=== PATIENT | male | born 1985 | race Caucasian/White ===

== ENCOUNTER 2017-05-22 08:31 | Observation (INO) | payer BC, SELFPAY ==
[2017-05-22] VITALS (12 sets, daily range): BP systolic 111–148; BP diastolic 66–94; PULSE 56–111; RESP 15–19; TEMP 36.8–37.1; O2SAT 96–100; BMI 27.8; BMI 27.2
--- NOTE | 2017-05-22 08:37 | NURSING ---
NO OLD EKGS
--- NOTE | 2017-05-22 08:46 | EKG12_ITS ---
Test Reason : CP Blood Pressure : / mmHG Vent. Rate : 092 BPM Atrial Rate : 092 BPM P-R Int : 146 ms QRS Dur : 086 ms QT Int : 354 ms P-R-T Axes : 064 059 044 degrees QTc Int : 437 ms Normal sinus rhythm Normal ECG Confirmed by CHEYENNE RODRIGUEZ, ASHWIN ([id number]), newspaper copy editor JIM FAJARDO ([id number]) on 05/24/2017 3:12:12 PM Referred By: JOSETTE Confirmed By:ASHWIN QUINN MD
--- NOTE | 2017-05-22 08:48 | ED.VISSUMM ---
- ER Visit Summary Date of Service: 05/22/17 Chief Complaint: Chest pain History of Present Illness: The patient is a 32 M with a 3 day history of intermittent chest pain. He describes a sharp pinching sensation under the left lower ribs that travels up toward his left collarbone. Pain is worse with deep breath or with twisting or turning onto his side while lying down. Patient does feel somewhat short of breath. He has had mild cough in the morning only. No fever or runny nose. Patient does report recent travel with a 10 hour car ride to [place] 10 days ago. He has no other risk factors for DVT and no family history. Physical Examination: Initial vital signs are significant for tachycardia with a heart rate of 111, improved into the normal range at the time of my exam. Head neck examination is unremarkable. Heart is regular rate and rhythm. Lung sounds are clear with good air movement. Abdomen is soft nontender. Lower external examination reveals no calf tenderness or edema. He has strong distal pulses throughout that are equal. Test Results: EKG is sinus at 92 bpm with no sign of acute ischemia or strain. CBC and chemistry studies are normal. Troponin is less than 0.02. D-dimer is less than 0.27. Portable chest x-ray per my read is unremarkable with normal cardiac silhouette. Emergency Department Course and Treatment: Patient was observed in the emergency room. I went back to review his test results with him. He states that approximately 10 minutes before I came into the room he had a fluttering sensation in his chest and the monitor looked abnormal. Those symptoms are completely resolved. I went back to the monitor system and reviewed alarms. Patient had a 6 beat run of V. tach. This was sent to and discussed with Dr. Busby. He asked that we check a magnesium level and give the patient aspirin. 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 Patient is to be admitted for cardiac monitoring, cycling of cardiac enzymes, echocardiogram, and stress test. Hospitalist is on page. Treatment Plan: [] Disposition: Admit Impression: 1. Chest pain 2. 6 beat run of V. tach This note was generated with [employer] dictation software. It may contain incorrect words, spelling, and punctuation that were not noted in review of the chart prior to signing ED Disposition - Plan for ED Patient: Chief Complaint: Chest Other Referrals: Todd Guzman MD [Primary Care Provider] -
--- NOTE | 2017-05-22 09:10 | RAD_ITS ---
STUDY: X-RAY CHEST REASON FOR EXAM: Male, 32 years old. Chest pain and shortness of breath. TECHNIQUE: Two AP portable views of the chest. COMPARISON: May 25, 2016. FINDINGS: Cardiac monitoring leads are present. The lungs are clear and hyperexpanded. There is no demonstrated pleural abnormality. Normal size heart. Normal mediastinum and bethanie. Normal visualized pulmonary arteries. Normal visualized aortic arch and descending thoracic aorta. Normal visualized thoracic spine. Normal visualized ribs, clavicles, and shoulders. There is no demonstrated abnormality of the visualized soft tissue structures of the upper abdomen. RAD/Chest 1 View (Portable) IMPRESSION: No radiographic evidence of acute cardiopulmonary disease. Electronically Signed: Krupa Michael MD at 9:52 EDT , Service support ,
[2017-05-22 09:16] LABS: D-Dimer Quantitative (DVT/PE) < 0.27 FEU/ug/m (0.27-0.49)
[2017-05-22 09:19] LABS: Absolute Lymphocyte Count 2.83 X10^3/ul (0.83-4.51); Absolute Neutrophil Count 5.9 X10^3/uL (2.0-7.7); Eosinophil# 0.02 X10^3/uL; Eosinophils% 0.2 % (0-5); Hematocrit 46.1 % (40-54); Hemoglobin 16.4 g/dl (13.0-16.5); Lymphocyte # 2.83 X10^3/ul (4.0); Lymphocyte % 29.3 % (19-41); Mean Corp Hgb Conc 35.6 g/gl (32-36); Mean Corpuscular Hgb 31.2 pg (27.0-32.0); Mean Corpuscular Volume 87.6 fL (80-94); Mean Platelet Vol. 9.1 fl (6.2-12.0); Monocyte# 0.89 X10^3/uL; Monocyte% 9.2 % (0-10); POSITIVE COUNT NO; POSITIVE DIFFERENTIAL NO; POSITIVE MORPHOLOGY NO; Platelet Count 212 K/mm3 (150-450); RBC Distribution Width CV 12.4 % (11.6-14.6); RBC Distribution Width SD 39.6 fl (35.1-43.9); Red Blood Count 5.26 M/mm3 (4.6-6.2); White Blood Count 9.7 K/mm3 (4.4-11.0)
[2017-05-22 09:23] LABS: Anion Gap 10 (5-15); BUN 18 mg/dL (7-18); BUN/Creat Ratio 17.1 RATIO (10-20); Calcium,Total 9.1 mg/dL (8.5-10.1); Chloride 102 mmol/L (98-107); Creatinine, Serum 1.05 mg/dL (0.70-1.30); EST Glomerular Filtration Rate 88 mL/min (>60); Est Glom Filt Rate - Afr Amer 106 mL/min (>60); Estimated Creatinine Clearance 105.25 ml/min; Glucose 90 mg/dL (74-106); Potassium 3.7 mmol/L (3.5-5.1); Sodium Level 140 mmol/L (136-145)
--- NOTE | 2017-05-22 09:50 | NURSING ---
DR MAYORGA FOR DR FINCH
--- NOTE | 2017-05-22 09:54 | NURSING ---
PCU OBS V TAC WITH CP TIERRA
[2017-05-22 09:57] LABS: Magnesium 2.1 mg/dL (1.6-2.6)
--- NOTE | 2017-05-22 09:58 | HP.PCM_ITS ---
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 Patient denies shortness of breath, dizziness, sweating or syncope. In the ER his blood pressure was slightly elevated, 148/88 but now it is normal. He had 6 beats of NSVT in the ER. 2 EKGs done showed normal sinus rhythm with no significant ST-T changes suggestive of ischemia. [] Past Medical History Allergies dexamethasone [From TobraDex] Allergy (Verified 05/22/17 08:34) LOVE HOLM tobramycin Allergy (Verified 05/22/17 08:34) LOVE HOLM Home Medications: Ambulatory Orders Medication Instructions Recorded Escitalopram Oxalate [Lexapro] 10 mg PO DAILY 05/22/17 Smoking Status: Former smoker Review of Systems Constitutional: Denies: Chills, Fever, Weight Change HEENT: Denies: Head Aches, Sinus Congestion, Sinus Drainage Cardiovascular: Reports: Chest Pain. Denies: Palpitations Respiratory: Denies: Cough, Shortness of breath at rest, Sputum production Gastrointestinal: Denies: Abdominal Pain, Nausea, Vomiting Genitourinary: Denies: Dysuria Musculoskeletal: Denies: Joint Pain, Joint Tenderness Skin: Denies: Rash, Wounds Neurological: Denies: Numbness, Tingling, Focal weakness Psychiatric: Denies: Anxiety, Depression, Homicidal Ideations, Suicidal Ideations Hematologic/ Lymphatic: Denies: Easy Bruising, Easy Bleeding VTE Information - Inpt Only VTE Present on Admission: No VTE Mechan Device Prophylaxis: None VTE Pharm Prophylaxis ordered?: No Reason prophylaxis not ordered:: Procedure Not Indicated Patient Problems: Active and Suspected Problems Atypical chest pain (Acute) NSVT (nonsustained ventricular tachycardia) (Acute) - Physical Exam General: Alert, Oriented x3, Cooperative HEENT: Atraumatic, PERRLA, EOMI, Normocephalic Neck: Supple, No JVD, Negative Carotid Bruits Lungs: Clear to auscultation, Normal air movement, No rhonchi, No wheeze, No rales, - - Mild tenderness over left costal margin and rib cage anteriorly Cardiovascular: Regular rate, Regular Rhythm, Normal S1, Normal S2, No murmurs Abdomen: Bowel Sounds Present, Soft, Non Tender, Non-Distended Extremities: No edema, Capillary Refill Less than 3 Seconds Skin: No rashes, No breakdown Musculoskeletal: No Tenderness to Palpation of Joints or Extremities Neurological: Cranial nerves II-XII grossly intact Psych/Mental Status: Normal Affect, Appropriate Vital Signs Temp Pulse Resp BP Pulse Ox 98.5 F 89 15 148/88 H 100 05/22/17 08:31 05/22/17 08:40 05/22/17 08:40 05/22/17 08:40 05/22/17 08:58 Oxygen Delivery Method Room Air Weight: 194 lb 0.108 oz Body Mass Index (BMI) 27.8 Laboratory Tests Past 24 Hrs 05/22/17 05/22/17 05/22/17 08:50 08:50 08:50 WBC 9.7 RBC 5.26 Hgb 16.4 Hct 46.1 MCV 87.6 MCH 31.2 MCHC 35.6 RDW 12.4 RDW Differential 39.6 Plt Count 212 MPV 9.1 Immature Gran % (Auto) 0.300 Neut % (Auto) 61.0 Lymph % (Auto) 29.3 Owen % (Auto) 9.2 Eos % (Auto) 0.2 Baso % (Auto) 0.0 Absolute Neuts (auto) 5.9 Absolute Lymphs (auto) 2.83 Total Counted Not Reportable D-Dimer Quant (PE/DVT) < 0.27 L Sodium 140 Potassium 3.7 Chloride 102 Carbon Dioxide 28.0 Anion Gap 10 BUN 18 Creatinine 1.05 Estim Creat Clear Calc 105.25 Est GFR (MDRD) Af Amer 106 Est GFR (MDRD) Non-Af 88 BUN/Creatinine Ratio 17.1 Glucose 90 Calcium 9.1 Magnesium Troponin I < 0.02 05/22/17 08:50 WBC RBC Hgb Hct MCV MCH MCHC RDW RDW Differential Plt Count MPV Immature Gran % (Auto) Neut % (Auto) Lymph % (Auto) Owen % (Auto) Eos % (Auto) Baso % (Auto) Absolute Neuts (auto) Absolute Lymphs (auto) Total Counted D-Dimer Quant (PE/DVT) Sodium Potassium Chloride Carbon Dioxide Anion Gap BUN Creatinine Estim Creat Clear Calc Est GFR (MDRD) Af Amer Est GFR (MDRD) Non-Af BUN/Creatinine Ratio Glucose Calcium Magnesium 2.1 Troponin I Assessment/Plan Active and Suspected Problems Atypical chest pain (Acute) NSVT (nonsustained ventricular tachycardia) (Acute) 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 Patient denies shortness of breath, dizziness, sweating or syncope. In the ER his blood pressure was slightly elevated, 148/88 but now it is normal. He had 6 beats of NSVT in the ER. 2 EKGs done showed normal sinus rhythm with no significant ST-T changes suggestive of ischemia. 1. Atypical chest pain most probably musculoskeletal from intercostal muscles and rib cartilages: The patient is being admitted in the PCU. On ACS protocol with serial troponin enzymes and treadmill nuclear stress test tomorrow a.m. 2. Short run of NSVT: In ER was noticed to have 6 beats of NSVT. Monitor on telemetry. Very low suspicion for cardiac disease. No family history of heart disease in first-degree family relative. 3. Transient high blood pressure: Patient does not have history of hypertension. Monitor Vitals. Patient has anxiety syndrome. Mild anxiety: On Lexapro 10 mg daily, continued. DVT prophylaxis: Low risk, prophylaxis not indicated. Code Visit OBSV E&M: 63640 Initial observation care L3
[2017-05-22] MEDS: Escitalopram Oxalate 10 MG Tablet PO (10:58)
--- NOTE | 2017-05-22 11:07 | EKG12_ITS ---
Test Reason : AM EKG Blood Pressure : / mmHG Vent. Rate : 064 BPM Atrial Rate : 064 BPM P-R Int : 154 ms QRS Dur : 088 ms QT Int : 406 ms P-R-T Axes : 066 039 017 degrees QTc Int : 418 ms Normal sinus rhythm Normal ECG When compared with ECG of 22-MAY-2017 11:03, MANUAL COMPARISON REQUIRED, DATA IS UNCONFIRMED Confirmed by LAURO CHENEY ([id number]), assistant film editor JIM FAJARDO ([id number]) on 05/26/2017 3:08:25 PM Referred By: TIERRA Confirmed By:LAURO CHENEY
[2017-05-22 13:23] LABS: BNP,B-Type NATRIURETIC PEPTIDE 11.6 pg/mL (0-100)
[2017-05-23 02:59] VITALS: PULSE 54
[2017-05-23 03:04] VITALS: BP 112/78; PULSE 66; RESP 16; TEMP 36.7; O2SAT 98
[2017-05-23 05:19] VITALS: BP 102/65; PULSE 71; RESP 16; TEMP 36.9; O2SAT 99
--- NOTE | 2017-05-23 05:28 | STEWCON_ITS ---
Reason For Study: Chest Pain Stress Results Protocol: Curly Protocol Maximum Predicted HR: 189 bpm Target HR: 161 bpm% Max imum Predicted HR: 99 % DurationHeart Rate Stage (mm:ss) (bpm) BPCom ment Baseline 62 122/78 Definity 0.4 ML Used Curly Protocol Stage I 3:00 13 7 118/72 Curly Protocol Stage II 3:00 16 0 140/74 Curly Protocol Stage III 3:00 17 3 138/70 Curly Protocol Stage IV 1:15 18 7 / Recovery 114 122/7 0 Stress Duration: 10:15 mm:ss Maximum Stress HR: 187 bpmME TS: 13 Baseline Echocardiogram Findings Stress Echo Wall motion Data Resting WMIntermediate WMStress WM Resting Wall Motion Wall Motion Stress No regional wall motion No regional wall motion abnormalities noted. abnormalities noted. Ejection Fraction 60 %. Ejection Fraction 70 %. Stress Results Normal blood pressure response to exercise. Exercise was stopped due to achievement of target heart rate. EKG Data Baseline ECG demonstrates normal sinus rhythm with a rate of 74 beats per minute. Normal intervals are noted. The resting blood pressure was 122/78. The patient exercised according to the regular Curly protocol for a total duration of 10. min 15sec. The maximum heart rate attained was 200 beats per minute. This was 105% of maximum predicted heart rate. The patient exercised into stage 4 of the Curly protocol. During stress, there were no ST or T wave changes noted to suggest ischemia. At peak exercise, upsloping ST changes only were noted, which did not meet the criteria for ischemia. Interpretation Summary Normal resting LV systolic function. Nonstenotic valves. With stress, the LV size decreased and all segments augmented normally. The LVEF increased from 60% to 70%. Negative for ischemia at 105% of MPHR and at 13.4 METS. Normal stress echo at a high workload Ordering Physician: Doreen Darby Referring Physician: Reji Negron MD Performed By: Saundra Ojeda, RDCS, RVT
--- NOTE | 2017-05-23 05:55 | EKG12_ITS ---
Test Reason : ST CHANGES Blood Pressure : / mmHG Vent. Rate : 074 BPM Atrial Rate : 074 BPM P-R Int : 146 ms QRS Dur : 086 ms QT Int : 372 ms P-R-T Axes : 059 021 036 degrees QTc Int : 412 ms Normal sinus rhythm Normal ECG No previous ECGs available Confirmed by LAURO CHENEY ([id number]), technical editor JIM FAJARDO ([id number]) on 05/26/2017 3:07:16 PM Referred By: TIERRA Confirmed By:LAURO CHENEY
[2017-05-23 06:20] LABS: Absolute Lymphocyte Count 2.04 X10^3/ul (0.83-4.51); Absolute Neutrophil Count 4.1 X10^3/uL (2.0-7.7); Basophil# 0.01 X10^3/uL; Basophil% 0.1 % (0-1); Eosinophil# 0.03 X10^3/uL; Eosinophils% 0.4 % (0-5); Hematocrit 43.9 % (40-54); Hemoglobin 15.5 g/dl (13.0-16.5); Lymphocyte # 2.04 X10^3/ul (4.0); Lymphocyte % 30.2 % (19-41); Mean Corp Hgb Conc 35.3 g/gl (32-36); Mean Corpuscular Hgb 31.3 pg (27.0-32.0); Mean Corpuscular Volume 88.5 fL (80-94); Mean Platelet Vol. 8.9 fl (6.2-12.0); Monocyte# 0.61 X10^3/uL; Neutrophil # 4.06 X10^3/uL (2.7-7.7); Neutrophil % 60.2 % (47-70); Platelet Count 195 K/mm3 (150-450); RBC Distribution Width CV 12.5 % (11.6-14.6); RBC Distribution Width SD 39.7 fl (35.1-43.9); Red Blood Count 4.96 M/mm3 (4.6-6.2); White Blood Count 6.8 K/mm3 (4.4-11.0)
[2017-05-23 06:24] LABS: International Normalized Ratio 1.1; Prothrombin Time (Protime)PT. 14.2 SECONDS (11.7-14.9)
[2017-05-23 06:25] LABS: Partial Thromboplast Time 32.7 Seconds (24.1-36.2)
[2017-05-23 06:39] LABS: POSITIVE COUNT NO; POSITIVE DIFFERENTIAL NO; POSITIVE MORPHOLOGY NO
[2017-05-23 06:54] LABS: Anion Gap 7 (5-15); BUN 22 mg/dL (7-18); BUN/Creat Ratio 21.6 RATIO (10-20); Chloride 102 mmol/L (98-107); Cholesterol 185 mg/dL (200); Creatinine, Serum 1.02 mg/dL (0.70-1.30); EST Glomerular Filtration Rate 91 mL/min (>60); Est Glom Filt Rate - Afr Amer 110 mL/min (>60); Estimated Creatinine Clearance 108.35 ml/min; Glucose 90 mg/dL (74-106); High Density Lipoprotein 42 mg/dL; Potassium 4.2 mmol/L (3.5-5.1); Sodium Level 140 mmol/L (136-145); Thyroid Stim Hormone (TSH) 1.32 uIU/mL (0.358-3.74); Triglycerides 95 mg/dL; Very Low Density Lipoprotein 19 mg/dL (5-40)
[2017-05-23 07:21] VITALS: PULSE 81
[2017-05-23] MEDS: Escitalopram Oxalate 10 MG Tablet PO (09:18)
--- NOTE | 2017-05-23 09:41 | PCM.DC ---
- Discharge Diagnoses Current Active Problems: Current Active and Chronic Problems Atypical chest pain (Acute) NSVT (nonsustained ventricular tachycardia) (Acute) You will use the following diet at home:: Regular Your food should be the consistency of: Regular Discharge Activity: Return to Normal Activity Weight Bearing Status: Full weight bearing Call your doctor if you observe: Fever of 101 or Higher, Shortness of breath, Dizziness, Fainting spells, Swelling in the ankles, Chest pain, Increased palpitations (irregular heartbeat), Uncontrolled pain Instructions: Taking Your Blood Pressure Allergies/Adverse Reactions: Allergies dexamethasone [From TobraDex] Allergy (Verified 05/22/17 08:34) LOVE JOHNSONS tobramycin Allergy (Verified 05/22/17 08:34) LOVE HOLM Medications to take at Discharge Escitalopram Oxalate [Lexapro] 10 mg PO DAILY 05/22/17 Primary Care Physician: Todd Guzman MD [Primary Care Provider] - Please follow up with your Primary Care Physician in: 2 weeks.
[2017-05-23 09:56] VITALS: BP 122/79; PULSE 80; RESP 16; TEMP 36.8; O2SAT 98
--- NOTE | 2017-05-23 13:46 | PCM.DC.SUM ---
Discharge Date and Diagnosis Date of Admission: 05/22/17 Date of Discharge: 05/23/17 - Primary Discharge Diagnosis #1 atypical chest pain, ACS ruled out, negative cardiac workup including stress test. #2 reported short run of nonsustained V. tach, remained in sinus rhythm throughout admission. Hospital Course and Treatment Imaging Results: 05/23/17 05:28 Stress Test Echo W/Contrast [ECHO] Routine Clinical Impression(s) from Imaging Studies Chest X-Ray 05/22/17 09:10 IMPRESSION: No radiographic evidence of acute cardiopulmonary disease. Electronically Signed: Krupa Michael MD at 9:52 EDT , Service support , Operations: None Procedures: EKG, - - Stress echocardiogram. Summary of Care Provided: Patient seen and examined on the day of discharge and appeared to be stable to be discharged home. He has no more chest pain or shortness of breath. His blood pressure stabilized. Other vital signs are stable. - Physical Exam General: Alert, Oriented x3, Cooperative, No apparent distress. HEENT: Atraumatic, PERRLA, EOMI. Neck: Supple, No JVD, Negative Carotid Bruits, Trachea Midline, Thyroid Normal. Lungs: Clear to auscultation, Normal air movement, No rhonchi, No wheeze, No rales. Cardiovascular: Regular rate, Regular Rhythm, Normal S1, Normal S2, PMI Normal. Abdomen: Bowel Sounds Present, Soft, Non Tender, Non-Distended, No Hepato-splenomegaly. Extremities: No clubbing, No cyanosis, No edema Skin: No rashes, No breakdown Neurological: Neuro grossly intact Vital Signs are stable. Hospital course: The patient is a 32 year old M with no significant past medical history admitted because of atypical chest pain. His cardiac workup was unremarkable. EKG revealed no acute ischemic changes. Troponin was negative ?4. His routine blood work was unremarkable. Chest x-ray showed no acute findings. He underwent stress echocardiogram that was reported negative without evidence of acute ischemia and with preserved ejection fraction. Acute coronary syndrome ruled out. His symptoms attributed to possible musculoskeletal pain. Reportedly, patient had run of nonsustained V. tach of 6 beats in the emergency room. Throughout his admission and the floor, he remained in sinus rhythm without evidence of cardiac arrhythmias. His serum electrolytes including potassium and magnesium were normal. TSH was normal. Upon admission, his blood pressure was slightly elevated and he was started on the a small dose of lisinopril 5 mg p.o. daily. Today his blood pressure has been stable and even on the lower side. His d-dimer was negative. Patient discharged home in a stable medical condition, discharged on his only home medication which is Lexapro, recommended to check blood pressure closely for the next week, follow-up with PCP in 2 weeks. Discharge Activity: Return to Normal Activity Weight Bearing Status: Full weight bearing Call your doctor if you observe: Fever of 101 or Higher, Shortness of breath, Dizziness, Fainting spells, Swelling in the ankles, Chest pain, Increased palpitations (irregular heartbeat), Uncontrolled pain Home Medications: Medications to take at Discharge Escitalopram Oxalate [Lexapro] 10 mg PO DAILY 05/22/17 Primary Care Physician: Todd Guzman MD [Primary Care Provider] - Please follow up with your Primary Care Physician in: 2 weeks. Patient Instructions: Taking Your Blood Pressure Disposition: Home Minutes spent on discharge:: 25 Patient Condition:: Stable Medical Necessity - Tobacco Use Smoking Status: Former smoker Meaningful Use Info Meaningful Use Diagnoses (Choose all that apply): None applicable Code Visit OBSV E&M: 87773 Observation care discharge
--- NOTE | 2017-05-23 13:52 | DS.PCM_ITS ---
Discharge Date and Diagnosis Date of Admission: 05/22/17 Date of Discharge: 05/23/17 - Primary Discharge Diagnosis #1 atypical chest pain, ACS ruled out, negative cardiac workup including stress test. #2 reported short run of nonsustained V. tach, remained in sinus rhythm throughout admission. Hospital Course and Treatment Imaging Results: 05/23/17 05:28 Stress Test Echo W/Contrast [ECHO] Routine Clinical Impression(s) from Imaging Studies Chest X-Ray 05/22/17 09:10 IMPRESSION: No radiographic evidence of acute cardiopulmonary disease. Electronically Signed: Krupa Michael MD at 9:52 EDT , Service support , Operations: None Procedures: EKG, - - Stress echocardiogram. Summary of Care Provided: Patient seen and examined on the day of discharge and appeared to be stable to be discharged home. He has no more chest pain or shortness of breath. His blood pressure stabilized. Other vital signs are stable. - Physical Exam General: Alert, Oriented x3, Cooperative, No apparent distress. HEENT: Atraumatic, PERRLA, EOMI. Neck: Supple, No JVD, Negative Carotid Bruits, Trachea Midline, Thyroid Normal. Lungs: Clear to auscultation, Normal air movement, No rhonchi, No wheeze, No rales. Cardiovascular: Regular rate, Regular Rhythm, Normal S1, Normal S2, PMI Normal. Abdomen: Bowel Sounds Present, Soft, Non Tender, Non-Distended, No Hepato- splenomegaly. Extremities: No clubbing, No cyanosis, No edema Skin: No rashes, No breakdown Neurological: Neuro grossly intact Vital Signs are stable. Hospital course: The patient is a 32 year old M with no significant past medical history admitted because of atypical chest pain. His cardiac workup was unremarkable. EKG revealed no acute ischemic changes. Troponin was negative ?4. His routine blood work was unremarkable. Chest x-ray showed no acute findings. He underwent stress echocardiogram that was reported negative without evidence of acute ischemia and with preserved ejection fraction. Acute coronary syndrome ruled out. His symptoms attributed to possible musculoskeletal pain. Reportedly, patient had run of nonsustained V. tach of 6 beats in the emergency room. Throughout his admission and the floor, he remained in sinus rhythm without evidence of cardiac arrhythmias. His serum electrolytes including potassium and magnesium were normal. TSH was normal. Upon admission, his blood pressure was slightly elevated and he was started on the a small dose of lisinopril 5 mg p.o. daily. Today his blood pressure has been stable and even on the lower side. His d-dimer was negative. Patient discharged home in a stable medical condition, discharged on his only home medication which is Lexapro, recommended to check blood pressure closely for the next week, follow- up with PCP in 2 weeks. Discharge Activity: Return to Normal Activity Weight Bearing Status: Full weight bearing Call your doctor if you observe: Fever of 101 or Higher, Shortness of breath, Dizziness, Fainting spells, Swelling in the ankles, Chest pain, Increased palpitations (irregular heartbeat), Uncontrolled pain Home Medications: Medications to take at Discharge Escitalopram Oxalate [Lexapro] 10 mg PO DAILY 05/22/17 Primary Care Physician: Todd Guzman MD [Primary Care Provider] - Please follow up with your Primary Care Physician in: 2 weeks. Patient Instructions: Taking Your Blood Pressure Disposition: Home Minutes spent on discharge:: 25 Patient Condition:: Stable Medical Necessity - Tobacco Use Smoking Status: Former smoker Meaningful Use Info Meaningful Use Diagnoses (Choose all that apply): None applicable Code Visit OBSV E&M: 35171 Observation care discharge
== END 2017-05-23 09:42 | disposition home or self-care (01) ==
LOC: ED 08:56 → PCU 10:12
PROVIDERS: Admitting Provider Internal Medicine; Emergency Provider Emergency Medicine; Family Provider Family Medicine; PCP Family Medicine; Visit Provider Hospitalist
DX: R07.89 Other chest pain (principal); I47.2 Ventricular tachycardia; Z87.891 Personal history of nicotine dependence; Z79.899 Other long term (current) drug therapy; F41.9 Anxiety disorder, unspecified; R03.0 Elevated blood-pressure reading, without diagnosis of hypertension; R06.02 Shortness of breath
CPT/HCPCS: 36415; 71045; 80048; 80061; 83735; 83880; 84443; 84484; 85025; 85379; 85610; 85730; 93005; 93017; 93350; 99218; 99285; Q9957; A4216; C8928; G0378

== ENCOUNTER → 2018-04-03 08:12 | Outpatient (CLI) | payer BC, SELFPAY ==
--- NOTE | 2018-04-03 08:18 | CT_ITS ---
HISTORY: HERNIA,RT SIDE ABD PAIN X 2 MONTHS TECHNIQUE: Helically acquired images were obtained of the abdomen and pelvis without oral or IV contrast as per renal stone protocol. A radiation dose optimization technique was used for this scan. IV Contrast dosage and agent: None. Oral contrast: None. COMPARISON: None FINDINGS: # of images incl. paperwork: [id number] LOWER CHEST: Lung bases are clear. No cardiomegaly or pericardial effusion observed. LIVER: Homogeneous. No focal mass. GALLBLADDER AND BILIARY TREE: No calcified gallstones. There is no gallbladder distension or wall edema. No intra- or extrahepatic biliary ductal dilation. KIDNEYS AND URETERS: Normal renal size and position. There is no hydronephrosis or nephrolithiasis. ADRENAL GLANDS: Non-enlarged. SPLEEN: Normal size without focal cystic or solid mass. PANCREAS: No focal cystic or solid mass. BOWEL: No stomach or bowel distension. No focal inflammatory change observed. LYMPH NODES: No enlarged mesenteric or retroperitoneal lymph nodes. PERITONEUM: No ascites or free air. No other fluid collection. VESSELS: Aorta is non-dilated. URINARY BLADDER: Incompletely distended, otherwise grossly unremarkable. REPRODUCTIVE ORGANS: No pelvic masses or pelvic ascites. ABDOMINAL WALL: No discrete abdominal or pelvic wall hernia observed. BONES: No lytic or blastic abnormality observed. CT/Abdomen/Pelvis without Cont IMPRESSION: No acute or concerning findings. No etiology for the patient's symptoms identified. Individualized dose optimization techniques were used for this CT. at 0915 Reported and signed by: Henrry Campbell MD Electronically Signed: Henrry Campbell, at 9:13 EST Tel , Service support ,
== END ==
PROVIDERS: Family Provider Family Medicine; PCP Family Medicine; Referring Provider Family Medicine; Visit Provider Family Medicine
DX: R10.9 Unspecified abdominal pain (principal)
CPT/HCPCS: 74176

== ENCOUNTER → 2018-06-09 08:29 | Outpatient (CLI) | payer BC, SELFPAY ==
[2018-06-09 08:27] VITALS: BMI 28.8
--- NOTE | 2018-06-09 08:30 | RAD_ITS ---
STUDY: X-RAY CHEST REASON FOR EXAM: Male, 33 years old. Cough. TECHNIQUE: PA and lateral views of the chest. COMPARISON: Comparison is made with prior study dated May 22, 2017. FINDINGS: The lungs are clear and expanded. Scattered calcified granulomas. There is no demonstrated pleural abnormality. Normal size heart. Normal mediastinum and bethanie. Normal visualized pulmonary arteries. Normal visualized aortic arch and descending thoracic aorta. Normal visualized thoracic spine. Normal visualized ribs, clavicles, and shoulders. There is no demonstrated abnormality of the visualized soft tissue structures of the upper abdomen. RAD/Chest PA and Lateral IMPRESSION: Normal x-ray examination of the chest. Electronically Signed: Dean Herron, at 9:47 EDT , Service support ,
== END ==
PROVIDERS: Family Provider Family Medicine; PCP Family Medicine; Referring Provider Physician Assistant Surgical; Visit Provider Physician Assistant Surgical
DX: J20.9 Acute bronchitis, unspecified (principal)
CPT/HCPCS: 71046

== ENCOUNTER → 2020-01-08 16:48 | Outpatient (CLI) | payer BC, SELFPAY ==
[2018-06-09 08:27] VITALS: BMI 28.8
== END ==
PROVIDERS: PCP Family Medicine; Referring Provider Family Medicine; Visit Provider Family Medicine
DX: R53.83 Other fatigue (principal)
CPT/HCPCS: 36415; 84403

== ENCOUNTER → 2020-06-19 09:30 | Outpatient (CLI) | payer BC, SELFPAY ==
[2018-06-09 08:27] VITALS: BMI 28.8
[2020-06-19 10:58] LABS: Vitamin B12 727 pg/mL (211-911); Vitamin D,25 Hydroxy 27.7 ng/mL
[2020-06-19 11:06] LABS: Anion Gap 5 (5-15); BUN 17 mg/dL (7-18); BUN/Creat Ratio 15.6 RATIO (10-20); Calcium,Total 9.2 mg/dL (8.5-10.1); Chloride 105 mmol/L (98-107); Cholesterol 213 mg/dL (200); Creatinine, Serum 1.09 mg/dL (0.70-1.30); EST Glomerular Filtration Rate 82 mL/min (>60); Est Glom Filt Rate - Afr Amer 100 mL/min (>60); Glucose 90 mg/dL (74-106); High Density Lipoprotein 44 mg/dL; Potassium 4.1 mmol/L (3.5-5.1); Sodium Level 136 mmol/L (136-145); Triglycerides 200 mg/dL; Very Low Density Lipoprotein 40 mg/dL (5-40)
[2020-06-24 12:08] LABS: Testosterone, Free 15.09 ng/dL (5.00-21.00)
[2020-06-24 15:58] LABS: Testosterone, % Free 3.97 % (1.50-4.20); Testosterone, Total 380 ng/dL (264-916)
== END ==
PROVIDERS: PCP Family Medicine; Referring Provider Family Medicine; Visit Provider Family Medicine
DX: Z00.00 Encounter for general adult medical examination without abnormal findings (principal); N52.9 Male erectile dysfunction, unspecified; R53.83 Other fatigue
CPT/HCPCS: 36415; 80048; 80061; 82306; 82607; 84402; 84403; 84443

== ENCOUNTER → 2021-01-09 | Outpatient (CLI) | payer BC, SELFPAY ==
[2021-01-12 20:04] LABS: Fats, Neutral Normal (.); Fats, Total Normal (.)
== END | disposition home or self-care (01) ==
LOC: LABSPEC 15:57
PROVIDERS: PCP Family Medicine; Visit Provider Family Medicine
DX: K58.9 Irritable bowel syndrome, unspecified (principal)
CPT/HCPCS: 82274; 82705; 83630; 87177; 87209; 87506

== ENCOUNTER → 2021-07-22 | Outpatient (CLI) | payer BC, SELFPAY | END | disposition home or self-care (01) | PROVIDERS: PCP Family Medicine; Referring Provider Family Medicine; Visit Provider Family Medicine | DX: U07.1 COVID-19 (principal); J01.90 Acute sinusitis, unspecified | CPT/HCPCS: 87635; U0003; U0005 ==

== ENCOUNTER → 2022-02-18 | Outpatient (CLI) | payer BC, SELFPAY ==
[2022-02-18 12:36] LABS: ALB/GLOB Ratio 1.5 RATIO (0.9-2.4); AST(SGOT) 26 U/L (15-37); Alanine Aminotransfer ALT/SGPT 36 U/L (16-61); Albumin, Serum 4.5 g/dL (3.2-5.0); Alkaline Phosphatase 54 U/L (45-117); Anion Gap 6 (5-15); BUN 17 mg/dL (7-18); BUN/Creat Ratio 16.5 RATIO (10-20); Calcium,Total 9.4 mg/dL (8.5-10.1); Chloride 106 mmol/L (98-107); Creatinine, Serum 1.03 mg/dL (0.70-1.30); EST Glomerular Filtration Rate 87 mL/min (>60); Est Glom Filt Rate - Afr Amer 105 mL/min (>60); Glucose 90 mg/dL (74-106); Potassium 4.4 mmol/L (3.5-5.1); Protein, Total 7.5 g/dL (6.4-8.2); Sodium Level 141 mmol/L (136-145)
== END | disposition home or self-care (01) ==
PROVIDERS: PCP Family Medicine; Referring Provider Family Medicine; Visit Provider Family Medicine
DX: R79.89 Other specified abnormal findings of blood chemistry (principal)
CPT/HCPCS: 36415; 80053

== ENCOUNTER 2022-05-04 06:49 | Day surgery (SDC) | payer BC, SELFPAY ==
[2022-05-04] VITALS (7 sets, daily range): BP systolic 95–125; BP diastolic 62–83; PULSE 67–104; RESP 16–20; TEMP 36.8–36.9; O2SAT 97–100; BMI 26.0
[2022-05-04] MEDS: Lactated Ringers 1,000 ML 15 ML IV (07:12)
--- NOTE | 2022-05-04 07:45 | HP.PCM_ITS ---
History and Physical Date of Admission: 05/04/22 Intake Intake Visit Reasons:?2WK F/U HEMORRHOIDS Chief Complaint: hemorrhoids 2 wk f/u Allergies dexamethasone [From TobraDex] Allergy (Verified 03/31/22 08:17) LOVE JOHNSONStobramycin Allergy (Verified 03/31/22 08:17) LOVE CRANDALLS Medications escitalopram oxalate 10 mg tablet 10 mg PO DAILY 05/22/17 [History Confirmed 03/31/22] tadalafil 5 mg tablet ea PO 03/17/22 [History Confirmed 03/31/22] PFSH Medical History? Abdominal pain Anxiety Diarrhea Krishnamurthy-Brian syndrome Surgical History? Hx of skin graft Hx of wisdom tooth extraction S/P vasectomy Family History? Uncle Colon cancerGrandfather Cancer ?? ? Skin cancer Social History? Smoking Status:? Former smoker second hand exposure:? No alcohol intake:? current alcohol intake frequency: holidays/special occasions only substance use type:? does not use caffeine:? Yes frequency:? does not exercise HPI HPI HPI: Patient says he is still having anal pain and blood in stool.? Patient says that he was taking the cream but he says he was only using it once every other day. ROS General General: No weight change, appetite, fatigue, colon cancer, breast cancer or weakness HEENT HEENT: No difficulty swallowing, eye injury, eye surgery, swollen glands or hoarseness Endo Endocrine: No thyroid disease, diabetes mellitus, thyroid cancer, Hair loss, heat intolerance or cold intolerance Skin Skin: No rash or changing moles Breast Breast: No left breast lump, right breast lump, nipple discharge, breast pain, abnormal mammogram, abnormal US or breast enlargement Musc Musculoskeletal: No back problems, arthritis, rheumatoid arthritis, gout or joint pain Cardio Cardiovascular: No murmur, pacemaker, heart disease, atrial fibrillation, high blood pressure, heart attack, heart stent, palpitations, shortness of breat with exertion or chest pain Psych Psychiatric: No depression, anxiety or hearing voices Resp Respiratory: No shortness of breath, No sleep apnea, No cough, No COPD, No asthma, No emphysema and No wheezing Gastro Gastrointestinal: No abdominal pain, No nausea or vomiting, No diarrhea, No constipation, No blood in stool, No acid reflux, Yes hemorrhoids, Yes ulcers, No gallbladder problem and No black,tarry stools [place] Hematologic: No blood thinners, No blood disorders, No bleeding, No anemia and No blood clots Neuro Neurologic: No system reviewed and no additional complaints, except as documented, No as per HPI, No abnormal gait, No abnormal hearing, No abnormal movements, No abnormal speech, No behavioral changes, No burning sensations, No confusion, No convulsions, No disequilibrium, No dizziness, No localized weakness, No frequent falls, No headache(s), No lack of coordination, No loss of vision, No memory loss, No numbness, No other visual disturbances, No radicular pain, No restless legs, No sensory deficit, No syncope, No tingling, No tremor(s), No weakness and No other Exam Const General: cooperative Orientation: alert and oriented x3 [facility] Head: normal to inspection Neck Neck: normal visual inspection and full ROM Chest Chest palpation & inspection: normal inspection of the chest Resp Effort & Inspection: normal respiratory effort Auscultation: clear to auscultation bilaterally Cardio Rate: regular rate Rhythm: regular rhythm GI Inspection: non-distended Palpation: soft and nontender Skin General: no rashes or lesions noted Neuro General: patient alert and patient oriented x3 Extrem General: full ROM Psych Appearance: grossly normal Mental Status: mental status grossly normal Assessment and Plan Assessment and Plan (1) Blood in stool: ?Status:?Acute (2) Fissure in ano: ?Status:?Acute ? ? ? Orders: Orders Colonoscopy Today ? ? Plan Patient did not get any relief from the cream but he was only taking it every other day.? I advised him to take it 3 times a day and to take it daily.? I also discussed with him in detail colonoscopy and exam under anesthesia with possible treatment of the fissure.? Patient elects to have colonoscopy first to check the entire colon for the source of bleeding and to check for fissure better while patient is asleep.? If there is a fissure the patient would be interested in performing an exam under anesthesia at a later date with treatment of fissure. I explained endoscopy in detail to the patient.? I explained the risks including but not limited to stroke or heart attack with anesthesia, perforation of the GI tract, bleeding, infection.? I explained that any of these could necessitate further emergency surgery.? The patient understands and all questions were answered sufficiently.? The patient wishes to proceed with procedure. Raymundo Mg MD Pager: [facility] [address] [place] [address] [address] [place] [address] Office: I have examined the patient and the H&P has been reviewed. There are no clinical changes since date of exam.
--- NOTE | 2022-05-04 08:13 | OP.CCLET_ITS ---
05/04/2022 Todd Guzman [address] [place] [address] Re : Colonoscopy procedure for Magen Verde Dear Dr. Guzman This procedure was performed on Wednesday, May 04, 2022. My impressions and recommendations are as follows: Impressions : - Anal fissure found on perianal exam. - The entire examined colon is normal on direct and retroflexion views. - No specimens collected. Recommendations : - Discharge patient to home. - Resume previous diet. - Continue present medications. - Repeat colonoscopy in 10 years for screening purposes. My findings are described in the full procedure note, which is enclosed. If I can be of further assistance, please feel free to contact me at Doctor phone number(s): , Work: . Sincerely, Raymundo Mg MD 05/04/2022 8:12:58 AM This report has been signed electronically.
--- NOTE | 2022-05-04 08:13 | OP.COLON_ITS ---
Patient Name: Magen Verde Procedure Date: 05/04/2022 7:47 AM Date of : 1985 Age: 37 Procedure: Colonoscopy Indications: Anal bleeding Providers: Raymundo Mg MD Medicines: Monitored Anesthesia Care Patient Profile: This is a 37 year old male. Refer to note in patient chart for documentation of history and physical. Last Colonoscopy: none. The patient's first colonoscopy is today. Complications: No immediate complications. Procedure: Pre-Anesthesia Assessment: - Prior to the procedure, a History and Physical was performed, and patient medications and allergies were reviewed. The patient's tolerance of previous anesthesia was also reviewed. The risks and benefits of the procedure and the sedation options and risks were discussed with the patient. All questions were answered, and informed consent was obtained. Prior Anticoagulants: The patient has taken no previous anticoagulant or antiplatelet agents. After reviewing the risks and benefits, the patient was deemed in satisfactory condition to undergo the procedure. After I obtained informed consent, the scope was passed under direct vision. Throughout the procedure, the patient's blood pressure, pulse, and oxygen saturations were monitored continuously. The pediatric colonoscope was introduced through the anus and advanced to the cecum, identified by appendiceal orifice and ileocecal valve. The colonoscopy was performed without difficulty. The patient tolerated the procedure well. The quality of the bowel preparation was good. Scope In: 7:56:51 AM Scope Withdrawal Time 0 hours 2 minutes 52 seconds Scope Out: 8:05:12 AM Total Procedure Duration Time 0 hours 8 minutes 21 seconds Findings: An anal fissure was found on perianal exam. The entire examined colon appeared normal on direct and retroflexion views. Impression: - Anal fissure found on perianal exam. - The entire examined colon is normal on direct and retroflexion views. - No specimens collected. Recommendation: - Discharge patient to home. - Resume previous diet. - Continue present medications. - Repeat colonoscopy in 10 years for screening purposes. Procedure Code(s): --- Professional --- 66852, Colonoscopy, flexible; diagnostic, including collection of specimen(s) by brushing or washing, when performed (separate procedure) Diagnosis Code(s): --- Professional --- K60.2, Anal fissure, unspecified K62.5, Hemorrhage of anus and rectum CPT copyright 2017 [employer]. All rights reserved. The codes documented in this report are preliminary and upon shooter's helper review may be revised to meet current compliance requirements. Raymundo Mg MD 05/04/2022 8:12:58 AM This report has been signed electronically. Number of Addenda: 0 Note Initiated On: 05/04/2022 7:47 AM
== END 2022-05-04 08:44 | disposition home or self-care (01) ==
LOC: EN 06:54 → AC 06:56
PROVIDERS: PCP Family Medicine; Referring Provider Family Medicine; Visit Provider Surgery
PROC: 0DJD8ZZ Inspection of Lower Intestinal Tract, Via Natural or Artificial Opening Endoscopic (ICD-10-PCS; CPT 45378; principal; 2022-05-04 07:55)
DX: K60.0 Acute anal fissure (principal); K62.5 Hemorrhage of anus and rectum; K64.9 Unspecified hemorrhoids; Z87.891 Personal history of nicotine dependence
CPT/HCPCS: 45378; J7120; J2405

== ENCOUNTER 2022-05-11 11:43 | Day surgery (SDC) | payer BC, SELFPAY ==
[2022-05-11 12:17] VITALS: BP 121/75; PULSE 90; RESP 18; TEMP 36.7; O2SAT 100; BMI 26.0
[2022-05-11] MEDS: Lactated Ringers 1,000 ML 15 ML IV ×2 (12:26→16:23)
--- NOTE | 2022-05-11 14:04 | PCM.HP.BLA ---
History and Physical Date of Admission: 05/11/22 Intake Vital Signs ? 05/04/2306:08 Height 5 ft 9 in Intake Visit Reasons:?c/o rectal pain Chief Complaint: c/o rectal pain Is patient in pain?: Yes Allergies dexamethasone [From TobraDex] Allergy (Verified 05/11/22 09:27) LOVE JOHNSONStobramycin Allergy (Verified 05/11/22 09:27) LOVE JOHNSONS Medications tadalafil 5 mg tablet (Cialis) 2.5 mg PO QODAY 05/03/22 [History Confirmed 05/11/22] PFSH Medical History?(Updated 05/11/22 @ 09:27 by Heidi Arreaga) Abdominal pain Anxiety Anxiety Olivera's palsy Diarrhea Former smoker History of stress test Krishnamurthy-Brian syndrome Surgical History? History of toe surgery Hx of eye surgery Hx of skin graft Hx of wisdom tooth extraction S/P vasectomy Family History? Uncle Colon cancerGrandfather Cancer ?? ? Skin cancer Social History? Smoking Status:? Former smoker second hand exposure:? No alcohol intake:? current alcohol intake frequency: holidays/special occasions only substance use type:? does not use caffeine:? Yes frequency:? does not exercise HPI HPI HPI: The patient was recently treated for a fissure.? He reports the fissure had healed and then all of a sudden yesterday he had a new type of pain farther into his rectal area.? He says that he has not been able to sit and has been extremely painful.? There is no drainage or fevers or chills. ROS General General: No weight change, appetite, fatigue, colon cancer, breast cancer or weakness HEENT HEENT: No difficulty swallowing, eye injury, eye surgery, swollen glands or hoarseness Endo Endocrine: No thyroid disease, diabetes mellitus, thyroid cancer, Hair loss, heat intolerance or cold intolerance Skin Skin: No rash or changing moles Breast Breast: No left breast lump, right breast lump, nipple discharge, breast pain, abnormal mammogram, abnormal US or breast enlargement Musc Musculoskeletal: No back problems, arthritis, rheumatoid arthritis, gout or joint pain Cardio Cardiovascular: No murmur, pacemaker, heart disease, atrial fibrillation, high blood pressure, heart attack, heart stent, palpitations, shortness of breat with exertion or chest pain Psych Psychiatric: No depression, anxiety or hearing voices Resp Respiratory: No shortness of breath, No sleep apnea, No cough, No COPD, No asthma, No emphysema and No wheezing Gastro Gastrointestinal: No abdominal pain, No nausea or vomiting, No diarrhea, No constipation, No blood in stool, No acid reflux, Yes hemorrhoids, Yes ulcers, No gallbladder problem and No black,tarry stools [place] Hematologic: No blood thinners, No blood disorders, No bleeding, No anemia and No blood clots Neuro Neurologic: No system reviewed and no additional complaints, except as documented, No as per HPI, No abnormal gait, No abnormal hearing, No abnormal movements, No abnormal speech, No behavioral changes, No burning sensations, No confusion, No convulsions, No disequilibrium, No dizziness, No localized weakness, No frequent falls, No headache(s), No lack of coordination, No loss of vision, No memory loss, No numbness, No other visual disturbances, No radicular pain, No restless legs, No sensory deficit, No syncope, No tingling, No tremor(s), No weakness and No other Exam Const General: cooperative Orientation: alert and oriented x3 [facility] Head: normal to inspection Neck Neck: normal visual inspection and full ROM Chest Chest palpation & inspection: normal inspection of the chest Resp Effort & Inspection: normal respiratory effort Auscultation: clear to auscultation bilaterally Cardio Rate: regular rate Rhythm: regular rhythm GI Inspection: non-distended Palpation: soft and nontender Other: On rectal exam there is a tender area in the posterior rectal vault superior to the anus. Skin General: no rashes or lesions noted Neuro General: patient alert and patient oriented x3 Extrem General: full ROM Psych Appearance: grossly normal Mental Status: mental status grossly normal Assessment and Plan Assessment and Plan (1) Rectal pain: ?Status:?Acute ?Plan: Patient is having a lot of pain and on rectal exam I did feel a firm area of the posterior rectum that was extremely tender.? Unsure if the patient has a perirectal abscess superior to the anus in the posterior aspect.? This could be thrombosis of an internal hemorrhoid although would be a little more rare.? I recommended an exam under anesthesia.? If it is an abscess I will drain and then start him on antibiotics.? I am seeing if precertification can get approved so he can have this as an add-on later today but if not I will send him to the ER to get approved through there and I will take him this afternoon.? I discussed the risks of bleeding, infection, need for further surgery.? Patient understands all the risks and is willing to proceed. Raymundo Mg MD Pager: [facility] [address] [place] [address], [address] [place] [address] Office:
[2022-05-11] MEDS: Cefotetan 2 GM in 0.9% NS 100 ML IV (14:19)
[2022-05-11] MEDS: Lubricating Jelly 60 GM Tube 30 GM (14:35)
[2022-05-11] MEDS: Bupivacaine 0.25% 30 ML Vial (14:35)
--- NOTE | 2022-05-11 14:52 | PCM.OPRPT ---
Report of Operation Date of Procedure: 05/11/22 Pre-Operative Diagnosis: Perirectal abscess Post-Operative Diagnosis: Same Surgery/Procedure Performed:: Exam under anesthesia with drainage of pararectal abscess Description of Procedure: Patient was brought back to the operating room and general anesthesia was induced. The patient was placed in lithotomy position and the perineum was prepped. An exam under anesthesia was performed. The patient appeared to have an olive sized collection within the posterior sphincter. It did not appear to be in the rectum or superior to the anal canal. There did not appear to be a thrombosed hemorrhoid. Made a small incision posterior to the anal canal in the perirectal skin. Using a hemostat the collection was entered and then a spread was performed. There is no purulent material that was removed but the collection disappeared. There is no purulent material or significant bleeding but the area then appeared soft and the sphincter felt normal. Unsure if I drained an internal thrombosed hemorrhoid or if it was an abscess. There was minimal bleeding and the area was cleaned and a dressing was applied and the patient was taken to PACU in stable condition. He will be sent home on oral antibiotics in case this is an abscess. Admit VTE Documentation VTE Mechan Device Prophylaxis: SCD's
--- NOTE | 2022-05-11 14:54 | DCINST_ITS ---
Discharge Instructions Diet Discharge Diet: Light diet - advance as tolerated Activity Discharge Activity: Return to Normal Activity, May Drive (tomorrow or when off of narcotics), May Shower and May Take a Tub Bath Weight Bearing Status: Weight bearing as tolerated Lifting Restrictions: none Dressing / Incision Call your doctor if your incision/area has: Continuous Slow Oozing, Sudden Increased Bleeding, Increased Pain/ Swelling, Increased Redness, Foul Smelling Discharge and Swelling at the incision site Call your doctor if you observe: Fever of 101 or Higher Cleanse incision/area with: Soap & Water Additional Dressing/Incision Instructions:: Change dressing as needed, use underwear to keep pad in place Follow Up Care Please Follow Up With: Raymundo Mg MD When: Please call to schedule 1 week follow up appointment. [phone] Test Results: Test results from this visit will be discussed in further detail at your follow- up appointment, if applicable. Discharge Plan Admission Attending Provider: Raymundo Mg Primary Care Provider: Todd Guzman Discharge Orders/Prescriptions Prescriptions: New oxycodone 5 mg tablet 5 - 10 mg PO Q6H PRN (Reason: pain) 5 Days Qty: 20 0RF amoxicillin-pot clavulanate [Augmentin] 500-125 mg tablet 1 tab PO BID Qty: 14 0RF No Action tadalafil [Cialis] 5 mg Tablet 2.5 mg PO QODAY Referrals / Follow Up: Todd Guzman MD [Primary Care Provider] - Disposition Disposition (needs filled in before D/C Order can be placed): Home, Self Care
[2022-05-11 15:00] VITALS: BP 121/75; BP 130/80; PULSE 103; RESP 16; O2SAT 98
[2022-05-11 15:15] VITALS: BP 121/75; BP 138/84; PULSE 103; RESP 16; O2SAT 98
[2022-05-11 15:30] VITALS: BP 121/75; BP 122/87; PULSE 87; RESP 16; O2SAT 100
[2022-05-11 15:45] VITALS: BP 121/75; BP 121/81; PULSE 85; RESP 16; TEMP 36.2; O2SAT 100
[2022-05-11] MEDS: oxyCODONE 5 MG Tablet PO (16:18)
[2022-05-11 18:06] VITALS: BP 107/65; BP 121/75; PULSE 100; RESP 16; TEMP 37.4; O2SAT 99
== END 2022-05-11 18:07 | disposition home or self-care (01) ==
LOC: SDC 11:45 → AC 11:46
PROVIDERS: PCP Family Medicine; Visit Provider Surgery
PROC: (CPT 46040; principal; 2022-05-11 13:45)
DX: K61.1 Rectal abscess (principal); Z87.891 Personal history of nicotine dependence
CPT/HCPCS: 46040; 00902; J7120; J2405

== ENCOUNTER → 2023-01-05 | Outpatient (CLI) | payer BC, SELFPAY ==
[2023-01-05 17:46] LABS: Absolute Lymphocyte Count 2.77 X10^3/uL (0.83-4.51); Absolute Neutrophil Count 3.6 X10^3/uL (2.0-7.7); Basophil# 0.02 X10^3/uL; Basophil% 0.3 % (0-1); Eosinophil# 0.03 X10^3/uL; Eosinophils% 0.4 % (0-5); Hemoglobin 15.3 g/dL (13.0-16.5); Lymphocyte # 2.77 X10^3/ul (0.83-4.51); Lymphocyte % 40.2 % (19-41); Mean Corp Hgb Conc 35.6 g/dL (32-36); Mean Corpuscular Hgb 31.5 pg (27.0-32.0); Mean Corpuscular Volume 88.7 fL (80-94); Mean Platelet Vol. 9.1 fl (6.2-12.0); Monocyte# 0.42 X10^3/uL; Monocyte% 6.1 % (0-10); NRBC Flagged by Analyzer 0 % (0-5); Neutrophil # 3.64 X10^3/uL (2.7-7.7); Neutrophil % 52.9 % (47-70); Platelet Count 231 K/mm3 (150-450); RBC Distribution Width CV 12.4 % (11.6-14.6); RBC Distribution Width SD 40.7 fl (35.1-43.9); Red Blood Count 4.85 M/mm3 (4.6-6.2); White Blood Count 6.9 K/mm3 (4.4-11.0)
[2023-01-05 17:58] LABS: Erythrocyte Sedimentation Rate < 1 mm/hr (0-20)
[2023-01-05 18:22] LABS: ALB/GLOB Ratio 1.3 RATIO (0.9-2.4); AST(SGOT) 25 U/L (15-37); Alanine Aminotransfer ALT/SGPT 53 U/L (16-61); Albumin, Serum 4.1 g/dL (3.2-5.0); Alkaline Phosphatase 41 U/L (45-117); Amylase 130 U/L (25-115); Anion Gap 6 (5-15); BUN 21 mg/dL (7-18); BUN/Creat Ratio 19.6 RATIO (10-20); Calcium,Total 8.8 mg/dL (8.5-10.1); Chloride 108 mmol/L (98-107); Creatinine, Serum 1.07 mg/dL (0.70-1.30); EST Glomerular Filtration Rate 83 mL/min (>60); Est Glom Filt Rate - Afr Amer 100 mL/min (>60); Globulin 3.2 g/dL (2.2-4.2); Glucose 86 mg/dL (74-106); Lipase 74 U/L (13-75); Protein, Total 7.3 g/dL (6.4-8.2); Sodium Level 141 mmol/L (136-145)
== END | disposition home or self-care (01) ==
LOC: MFPLAB 15:42
PROVIDERS: PCP Family Medicine; Visit Provider Family Medicine
DX: R10.9 Unspecified abdominal pain (principal); R63.4 Abnormal weight loss
CPT/HCPCS: 36415; 80053; 82150; 83690; 84443; 85025; 85652

== ENCOUNTER → 2023-02-14 | Outpatient (CLI) | payer BC, SELFPAY ==
--- NOTE | 2023-02-14 19:04 | CT_ITS ---
INDICATION: abd pain EXAMINATION: CT ABDOMEN WITH IV CONTRAST CT Abdomen W/ Contrast Injection TECHNIQUE: Helically acquired images were obtained of the abdomen following IV contrast. A radiation dose optimization technique was used for this scan. IV Contrast dosage and agent: Oral contrast: None. RADIATION DOSAGE (If Supplied By Facility): CTDIvol = ( 11.07 ) mGy, DLP = ( 293.95 ) mGycm COMPARISON: FINDINGS: LOWER CHEST: Lung bases are clear. No cardiomegaly or pericardial effusion. LIVER: Homogeneous. No focal mass. GALLBLADDER AND BILIARY TREE: No calcified gallstones. No gallbladder distension or wall edema. No intra- or extrahepatic biliary ductal dilation. PANCREAS: No focal cystic or solid mass. SPLEEN: Normal size without focal cystic or solid mass. ADRENAL GLANDS: No nodules. KIDNEYS AND URETERS: Normal renal size and position. No hydronephrosis. PERITONEUM: No ascites or free air. No other fluid collection. BOWEL: No stomach or bowel distension. No focal inflammatory change. LYMPH NODES: No enlarged mesenteric or retroperitoneal lymph nodes. VESSELS: Aorta is non-dilated. ABDOMINAL WALL: No discrete abdominal wall hernia. BONES: No lytic or blastic abnormality. CT/Abdomen WITH IV Contrast IMPRESSION: Negative CT abdomen with IV contrast. Electronically Signed: Alex Nguyen DO at 19:46 EST Reading Location ID and State: [facility] / [place] Tel [phone], Service support ,
== END | disposition home or self-care (01) ==
PROVIDERS: PCP Family Medicine; Referring Provider Family Medicine; Visit Provider Family Medicine
DX: R10.9 Unspecified abdominal pain (principal)
CPT/HCPCS: 74160; Q9967

== ENCOUNTER 2024-08-20 22:53 | Emergency (ER) | payer BC, SELFPAY ==
--- NOTE | 2024-08-20 01:15 | RAD_ITS ---
PROCEDURE: CHEST PA AND LATERAL 08/21/2024 REASON FOR EXAM: DYSPNEA TECHNIQUE: CHEST PA AND LATERAL COMPARISON: 06/09/2018 FINDINGS: Heart: The heart size is normal. Mediastinum: The mediastinal contour is unremarkable. Lungs: The lungs are clear. Bones: The bones are unremarkable. RAD/Chest PA and Lateral IMPRESSION: NEGATIVE CHEST Reading [facility] [address]
[2024-08-20 22:54] VITALS: BP 121/91; PULSE 123; RESP 18; TEMP 37.7; O2SAT 99; BMI 23.1
[2024-08-20 23:05] VITALS: BP 121/93; PULSE 91; RESP 18; TEMP 37.7; O2SAT 100
[2024-08-20] MEDS: Acetaminophen 500 MG Tablet 1000 MG PO (23:51)
[2024-08-20] MEDS: 0.9% Normal Saline (1000mL) 1,000 ML 999 ML IV (23:51)
[2024-08-20] MEDS: Ketorolac 30 MG/ML Syringe IV (23:51)
--- OUTSIDE RECORDS SUMMARY | 2024-08-20 23:51 | XMS RPT_ITS | CCD ---
Author Organization [facility] Care Team Providers Care Memory Care Program Resident Name Role Phone BOBY JAYY Referring Unavailable ALMOSELLI, KHALED Attending Unavailable DEORAS, LUZ Consulting Unavailable ALMOSELLI, KHALED Admitting Unavailable DEORAS, LUZ Consulting Unavailable Dr. Todd Guzman Primary Care Provider Dr. Todd Guzman Referring Provider Dr. Raymundo Mg Attending Provider Dr. Raymundo Mg Referring Provider Dr. Raymundo Mg Other Provider [phone] Dr. Todd Guzman Primary Care Provider Dr. Todd Guzman Referring Provider BARRETT Clark Attending Provider Todd Guzman Primary Care Unavailable Dina Clark Attending Unavailable Todd Guzman Referring Unavailable Raymundo Mg Attending Unavailable Todd Guzmna Referring Unavailable Todd Guzman Primary Care Unavailable Trish Hay Attending Unavailable Todd Guzman Referring Unavailable Megan Todd Primary Care Unavailable Todd Guzman Primary Care Unavailable Raymundo Mg Attending Unavailable Todd Guzman Referring Unavailable Todd Guzman Primary Care Unavailable Raymundo Mg Attending Unavailable Todd Guzman Referring Unavailable Megan, Todd Primary Care Unavailable Raymundo Mg Attending Unavailable Todd Guzman Attending Unavailable Todd Guzman Referring Unavailable Megan, Todd Primary Care Unavailable Todd Guzman Attending Unavailable Megan, Todd Primary Care Unavailable Raymundo Mg Referring Unavailable Todd Guzman Primary Care Unavailable Raymundo Mg Attending Unavailable Todd Guzman Primary Care Unavailable Raymundo Mg Attending Unavailable Todd Guzman Referring Unavailable Raymundo Mg Consulting Unavailable Todd Guzman Primary Care Unavailable Raymundo Mg Attending Unavailable Todd Guzman Referring Unavailable Todd Guzman Primary Care Unavailable Raymundo Mg Consulting Unavailable Raymundo Mg Attending Unavailable Dr. Todd Guzman Primary Care Provider Dr. Todd Guzman Referring Provider Dr. Raymundo Mg Attending Provider [phone] Dr. Trish Hay Attending Provider Allergies Allergy Classification Reported Allergen(s) Allergy Type Date of Onset Reaction(s) Facility (5 sources) Dexamethasone Drug Allergy 9 [facility] (5 sources) Tobramycin Drug Allergy 9 [facility] (1 source) Dexamethasone Drug Allergy [address] [facility] Repository (1 source) Tobramycin Drug Allergy [address] [facility] Repository Medications Current Medications Medication Drug Class(es) Dates Sig (Normalized) Sig (Original) escitalopram 10 mg oral tablet (1 source) Serotonin Reuptake Inhibitor Start: 05-22-2017 take 10 mg by mouth once daily Escitalopram Oxalate Active 10 MG PO DAILY May 21, 2017 11:00pm Hydrocortisone 2.5%/Lidocaine 5% Suppository (Cmpd) (1 source) Start: 01-14-2023 Hydrocortisone 2.5%/Lidocaine 5% Suppository (Cmpd) Active 0 .ROUTE January 14, 2023 12:00am insert rectally twice daily x 14 days Completed/Discontinued Medications Medication Drug Class(es) Dates Sig (Normalized) Sig (Original) amoxicillin 500 mg / clavulanate 125 mg oral tablet (8 sources) Penicillin-class Antibacterial Start: 05-11-2022 End: 09-15-2022 take 1 tablet by mouth twice daily Amoxicillin-Pot Clavulanate (Augmentin) 500-125 mg tablet Discontinued 1 TABLET PO TWICE A DAY May 11, 2022 12:00am September 15, 2022 12:18pm Start: 06-09-2018 End: 06-19-2018 take 1 tablet by mouth every twelve hours Amoxicillin-Pot Clavulanate (Augmentin) 875-125 mg tablet Discontinued 1 TABLET PO Q12H 20 June 08, 2018 11:00pm June 18, 2018 11:08pm Diltiazem 2% / Lidocaine 5% Ointment (Compound) [Diltiazem 2%/Lidocaine 5% Ointment (Compound)] (Diltiazem 2%/Lidocaine 5% ) ointment (2 sources) Start: 11-26-2022 End: 01-14-2023 Diltiazem 2% / Lidocaine 5% Ointment (Compound) [Diltiazem 2%/Lidocaine 5% Ointment (Compound)] (Diltiazem 2%/Lidocaine 5% ) ointment Discontinued 0 .Route November 25, 2022 11:00pm January 14, 2023 2:02pm twice daily as directed Start: 11-26-2022 Diltiazem 2% / Lidocaine 5% Ointment (Compound) [Diltiazem 2%/Lidocaine 5% Ointment (Compound)] (Diltiazem 2%/Lidocaine 5% ) ointment Active 0 .ROUTE November 25, 2022 11:00pm twice daily as directed nystatin [id number] unt/ml oral suspension (5 sources) Polyene Antifungal Start: 06-09-2018 End: 06-19-2018 take 1 mL by mouth every six hours Nystatin Discontinued 5 ML PO EVERY 6 HOURS 200 June 08, 2018 11:00pm June 18, 2018 11:08pm swish and swallow oxyCODONE hydrochloride 5 mg oral tablet (3 sources) Opioid Agonist Start: 05-11-2022 End: 09-15-2022 take 5-10 mg by mouth every six hours Oxycodone Discontinued 5 - 10 MG PO EVERY 6 HOURS 20 May 11, 2022 September 15, 2022 12:19pm tadalafil 5 mg oral tablet (4 sources) Phosphodiesterase 5 Inhibitor Start: 05-03-2022 End: 09-15-2022 take 1 tablet by mouth every other day Tadalafil (Cialis) 5 mg Tablet Discontinued 2.5 MG PO EVERY OTHER DAY May 03, 2022 12:00am September 15, 2022 12:19pm Problems Active Problems Problem Classification Problem Date Documented Da te Episodic/Chronic Abdominal pain (6 sources) Abdominal pain; Translations: [Unspecified abdominal pain] Onset: 02-17-2023 04-12-2018 Episodic Anxiety disorders (5 sources) Anxiety; Translations: [Anxiety disorder, unspecified] 04-12-2018 Chronic Cardiac dysrhythmias (5 sources) Nonsustained ventricular tachycardia ; Translations: [Nonsustained ventricular tachycardia] 05-22-2017 Chronic E Codes: Adverse effects of medical drugs (2 sources) Adverse effect of unspecified drugs, medicaments and biological substances, initial encounter; Translations: [Adverse effect of unspecified drugs, medicaments and biological substances, initial encounter] Onset: 02-07-2022 Episodic Other inflammatory condition of skin (2 sources) 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; Translations: [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)] Onset: 02-07-2022 Episodic Other nervous system disorders (2 sources) Paresthesia of skin; Translations: [Paresthesia of skin] Onset: 02-07-2022 Episodic Other skin disorders (5 sources) H/O: skin recipient; 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] 05-03-2022 Chronic Other skin disorders (1 source) Sebaceous cyst; Translations: [Sebaceous cyst] 09-15-2022 Episodic Past or Other Problems Problem Classification Problem Date Documented Da te Episodic/Chronic Acute bronchitis (5 sources) Acute bronchitis; Translations: [Acute bronchitis, unspecified] 06-09-2018 Episodic Anal and rectal conditions (16 sources) Anal fissure; Translations: [Anal fissure, unspecified] Onset: 03-31-2022 03-17-2022 Episodic Disorders of teeth and jaw (5 sources) Loss of teeth due to extraction; Translations: [Partial loss of teeth, unspecified cause, unspecified class] 04-12-2018 Episodic Gastrointestinal hemorrhage (8 sources) Hematochezia; Translations: [Melena] Onset: 03-31-2022 03-31-2022 Episodic Hemorrhoids (3 sources) Thrombosed external hemorrhoids; Translations: [Perianal venous thrombosis] 01-11-2023 Episodic Mycoses (5 sources) Candidiasis of mouth; Translations: [Candidal stomatitis] 06-09-2018 Episodic Nonspecific chest pain (5 sources) Atypical chest pain; Translations: [Other chest pain] 05-22-2017 Episodic Other gastrointestinal disorders (5 sources) Diarrhea; Translations: [Diarrhea, unspecified] 04-12-2018 Episodic Other skin disorders (2 sources) Infection of sebaceous cyst; Translations: [Sebaceous cyst] 09-15-2022 Episodic Results Test Name Value Interpretation Reference Range Facility Abdomen WITH IV Contraston 1 04-17-2022 Abdomen WITH IV Contrast [facility] [address] [place] [address] Abdomen WITH IV Contrast MR#: [id number] Acct: [id number] Name: MAGEN HENSLEY Rep #: [id number] : 1985 M 37 From: Alex Nguyen DO PCP: Dr. Todd Guzman MD Status: REG CLI Study: Abdomen WITH IV Contrast Date of Exam: 3 Exam# [id number] Ordering Dr: Todd Guzman MD [id number] INDICATION: abd pain EXAMINATION: CT ABDOMEN WITH IV CONTRAST CT Abdomen W/ Contrast Injection TECHNIQUE: Helically acquired images were obtained of the abdomen following IV contrast. A radiation dose optimization technique was used for this scan. IV Contrast dosage and agent: Oral contrast: None. RADIATION DOSAGE (If Supplied By Facility): CTDIvol = ( 11.07 ) mGy, DLP = ( 293.95 ) mGycm COMPARISON: __ FINDINGS: LOWER CHEST: Lung bases are clear. No cardiomegaly or pericardial effusion. LIVER: Homogeneous. No focal mass. GALLBLADDER AND BILIARY TREE: No calcified gallstones. No gallbladder distension or wall edema. No intra- or extrahepatic biliary ductal dilation. PANCREAS: No focal cystic or solid mass. SPLEEN: Normal size without focal cystic or solid mass. ADRENAL GLANDS: No nodules. KIDNEYS AND URETERS: Normal renal size and position. No hydronephrosis. PERITONEUM: No ascites or free air. No other fluid collection. BOWEL: No stomach or bowel distension. No focal inflammatory change. LYMPH NODES: No enlarged mesenteric or retroperitoneal lymph nodes. VESSELS: Aorta is non-dilated. ABDOMINAL WALL: No discrete abdominal wall hernia. BONES: No lytic or blastic abnormality. CT/Abdomen WITH IV Contrast IMPRESSION: Negative CT abdomen with IV contrast. Electronically Signed: Alex Nguyen DO at 19:46 EST Reading Location ID and State: [facility] / [place] Tel [phone], Service support , CC: Dr. Todd Guzman MD Battery Inspector: Signed Normal [facility] Surgery Visit Reporton 01-14 Surgery Visit Report [facility] [address] [place], [place] [address]. [address] [place] [address] OFFICE VISIT Date of Service: 01/14/23 MR#: [id number] Acct: [id number] Name: MAGEN HENSLEY Rep #: [id number] : 1985 Provider: Dr. Trish carvalho MD Age/Sex: 37/M Location: [facility] [place] Status: Signed Intake Vital Signs 05/11/22 12:17 Height 5 ft 9 in Intake Visit Reasons: Thrombosed Hemorrhoid Chief Complaint: Thrombosed hemorrhoid X 4 days Air Antisubmar[employer] Officer Required: No Accompanied by: Self Is patient in pain?: Yes (anus area burning) Pain scale (1-10): 5 Allergies dexamethasone [From TobraDex] Allergy (Verified 01/14/23 14:02) [facility]ONS tobramycin Allergy (Verified 01/14/23 14:02) [facility] Medications Hydrocortisone 2.5%/lidocaine 5% suppository (cmpd) #25 ea 01/14/23 [Rx Confirmed 01/14/23] PFSH Medical History Abdominal pain Anxiety Anxiety Olivera's palsy Diarrhea Former smoker History of stress test Krishnamurthy-Brian syndrome Surgical History History of toe surgery Hx of eye surgery Hx of skin graft Hx of wisdom tooth extraction S/P vasectomy Family History Uncle Colon cancer Grandfather Cancer Skin cancer Social History Smoking Status: Former smoker second hand exposure: No alcohol intake: current alcohol intake frequency: holidays/special occasions only substance use type: does not use caffeine: Yes frequency: does not exercise HPI HPI HPI: 37-year-old male presents due to rectal pain. Patient was just seen by Dr. Mg a couple days ago for a thrombosed hemorrhoid/history of anal fissure. Patient has been taking his diltiazem daily and doing sitz bath's. Patient has not started the Colace yet. Patient states the pain got a lot worse this morning but now it is more tolerable patient states the pain comes and goes is not directly related to bowel movements may be if he is sitting. ROS General General: No weight change or fatigue HEENT HEENT: No difficulty swallowing Endo Endocrine: No thyroid disease Musc Musculoskeletal: No back problems or arthritis Cardio Cardiovascular: No pacemaker, heart disease, atrial fibrillation, high blood pressure, heart attack, heart stent, palpitations or chest pain Psych Psychiatric: No depression or anxiety Resp Respiratory: No shortness of breath, No cough, No COPD, No asthma and No emphysema Gastro Gastrointestinal: No abdominal pain, No nausea or vomiting, No diarrhea, No constipation, No blood in stool, No acid reflux, No hemorrhoids, No ulcers, No gallbladder problem and No black,tarry stools [place] Hematologic: No blood thinners Exam Const General: cooperative, healthy appearing and comfortable [facility] Head: normocephalic and atraumatic Neck Neck: supple Resp Effort Inspection: normal respiratory effort Cardio Rate: regular rate GI Inspection: non-distended Palpation: soft Rectal Exam: hemorrhoids (Left-sided hemorrhoid) Skin General: no rashes or lesions noted Neuro General: CN's II-XI intact bilaterally Extrem General: normal to inspection Psych Mental Status: mental status grossly normal Attitude: cooperative Assessment and Plan Assessment and Plan (1) Thrombosed external hemorrhoid: Status: Acute (2) Rectal pain: Status: Acute Medications: New Hydrocortisone 2.5%/lidocaine 5% suppository (cmpd) insert rectally twice daily x 14 days 25 ea 0RF Plan Discussed with patient says his pain is actually improving would not recommend I D currently. We will give patient hydrocortisone/lidoca ine suppositories and he can also put his diltiazem on that as well for his anal fissure that he has been treating. Patient is agreeable with plan. Recommend starting the Colace and continuing sitz bath's. Coding Level of Care Code Off vis,est,level 3 Diagnoses Thrombosed external hemorrhoid K64.5 Rectal pain K62.89 01/15/23 0759 Date Trish Vazquezigner Signature: Date (if applicable) CC: Dr. Raymundo Mg MD; Dr. Todd Guzman MD Normal [facility] Surgery Visit Reporton 01-11 Surgery Visit Report [facility] [address] [place] [address]. [address] [place] [address] OFFICE VISIT Date of Service: 01/11/23 MR#: [id number] Acct: [id number] Name: MAGEN HENSLEY Rep #: [id number] : 1985 Provider: Dr. Raymundo rao MD Age/Sex: 37/M Location: [facility] Status: Signed Intake Vital Signs 05/11/22 12:17 Height 5 ft 9 in Intake Visit Reasons: SEBACEOUS CYST CAME BACK Chief Complaint: c/o rectal pain Air Antisubmarine Officer Required: No Is patient in pain?: Yes (rectum) Allergies dexamethasone [From TobraDex] Allergy (Verified 01/11/23 14:53) [facility] tobramycin Allergy (Verified 01/11/23 14:53) [facility] Medications Diltiazem 2% / Lidocaine 5% ointment (compound) (Diltiazem 2%/Lidocaine 5% ointment (compound)) #1 ea 11/26/22 [Rx Confirmed 01/11/23] PFSH Medical History Abdominal pain Anxiety Anxiety Olivera's palsy Diarrhea Former smoker History of stress test Krishnamurthy-Brian syndrome Surgical History History of toe surgery Hx of eye surgery Hx of skin graft Hx of wisdom tooth extraction S/P vasectomy Family History Uncle Colon cancer Grandfather Cancer Skin cancer Social History Smoking Status: Former smoker second hand exposure: No alcohol intake: current alcohol intake frequency: holidays/special occasions only substance use type: does not use caffeine: Yes frequency: does not exercise HPI HPI HPI: Patient is here complaining of pain in the anus. The patient reports that 3 days ago it got much worse than his normal pain and he has felt a mass which is shrinking. He also reports he has been using his fissure cream to no avail. ROS General General: No weight change or fatigue HEENT HEENT: No difficulty swallowing Endo Endocrine: No thyroid disease Musc Musculoskeletal: No back problems or arthritis Cardio Cardiovascular: No pacemaker, heart disease, atrial fibrillation, high blood pressure, heart attack, heart stent, palpitations or chest pain Psych Psychiatric: No depression or anxiety Resp Respiratory: No shortness of breath, No cough, No COPD, No asthma and No emphysema Gastro Gastrointestinal: No abdominal pain, No nausea or vomiting, No diarrhea, No constipation, No blood in stool, No acid reflux, No hemorrhoids, No ulcers, No gallbladder problem and No black,tarry stools [place] Hematologic: No blood thinners Exam Const General: cooperative Orientation: alert and oriented x3 HENMT Head: normal to inspection Neck Neck: normal visual inspection and full ROM Chest Chest palpation inspection: normal inspection of the chest Resp Effort Inspection: normal respiratory effort Auscultation: clear to auscultation bilaterally Cardio Rate: regular rate Rhythm: regular rhythm GI Inspection: non-distended Palpation: soft and nontender Other: Small thrombosed hemorrhoid Skin General: no rashes or lesions noted Neuro General: patient alert and patient oriented x3 Extrem General: full ROM Psych Appearance: grossly normal Mental Status: mental status grossly normal Assessment and Plan Assessment and Plan (1) Fissure in ano: Status: Acute (2) Thrombosed external hemorrhoid: Status: Acute Plan The patient has a fissure but it is not healing spite Cardizem cream. I advised him to start Colace and see if that helps at all. Patient also has a thrombosed external hemorrhoid but he says it used to be the size of a marble not the size of a pea and it is improving slightly. I assured him that this would usually resolve on its own and that warm compresses may help. The patient also has a very small fissure posteriorly. I would like him to try Colace for the fissure and to try to see if the thrombosed hemorrhoid will resolve. I have scheduled him for an office procedure in 2 weeks to address the fissure in the office. If the Colace helps he will cancel that appointment. If the thrombosed hemorrhoid worsens at all or becomes more painful he will come back for evacuation. Raymundo Mg MD Pager: [facility] [address] [place] [address], [address] [place] [address] Office: Coding Level of Care Code Off vis,est,level 3 Diagnoses Fissure in ano K60.2 Thrombosed external hemorrhoid K64.5 01/11/23 1506 Date Raymundo Mg MD Cosign Signature: Date (if applicable) CC: Dr. Todd Guzman MD [facility] Absolute lymphocyte countOrd ered By: Todd Guzman on 01-05-2023 Lymphocytes Auto (Unsp spec) [#/Vol] 2.77 10*3/uL 0.83-4.[address] [facility] Amylaseon 01-05-2023 WENDI 130 U/L High 25-[address] [facility] Comment on above: Order Comment: Order Date: 01/05/23 Order Info: [id number] - CMP Order Info: [id number] - WENDI Order Info: [id number] - LIPASE Order Info: [id number] - TSH Performed By: #### L 501.2400, L501.2450, L101.9900, L100.0100, L500.4050 #### [facility] [address] [place], [address] Basophil percentageOrdered B y: Todd Guzman on 01-05-2023 Amylase [Catalytic activity/Vol] 130 U/L 25-[address] [facility] Basophils/100 WBC (Bld) 0.3 % 0-1 [facility] Bilirubin [Mass/Vol] 0.70 mg/dL 0.20-1.00 [facility] Comment on above: For patients on eltr ombopag therapy, use of Dimension [place] TBIL is not recommended. Chloride [Moles/Vol] 108 mmol/L 98-107 [facility] Eosinophils/100 WBC (Bld) 0.4 % 0-[address] [facility] Glucose [Mass/Vol] 86 mg/dL 74-106 [facility] Neutrophils (Bld) [#/Vol] 3.6 10*3/uL 2.0-7.[address] [facility] Neutrophils/100 WBC (Bld) 52.9 % 47-[address] [facility] Potassium [Moles/Vol] 4.0 mmol/L 3.5-5.1 [facility] Protein [Mass/Vol] 7.3 g/dL 6.4-8.2 [facility] Sodium [Moles/Vol] 141 mmol/L 136-145 [facility] WBC (Bld) [#/Vol] 6.9 10*3/uL 4.4-11.0 [facility] Blood erythrocytes count (nu mber/volume)Ordered By: Todd Guzman on 01-05-2023 RBC (Bld) [#/Vol] 4.85 10*6/uL 4.6-6.2 [facility] Blood hemoglobin measurement (mass/volume)Ordered By: Todd Guzman on 01-05-2023 Hemoglobin (Bld) [Mass/Vol] 15.3 g/dL 13.0-16.[address] [facility] Blood lymphocytes/100 leukoc ytesOrdered By: Todd Guzman on 01-05-2023 Lymphocytes/100 WBC (Bld) 40.2 % 19-[address] [facility] Blood monocytes/100 leukocyt esOrdered By: Todd Guzman on 01-05-2023 Monocytes/100 WBC (Bld) 6.1 % 0-10 [facility] Blood platelet mean volumeOr dered By: Todd Guzman on 01-05-2023 Platelet mean volume (Bld) [Entitic vol] 9.1 fL 6.2-12.[address] [facility] CBC W/Diff, Automatedon 11-0 Absolute Lymph 2.77 X10 3/uL Normal 0.83-4.[address] [facility] Comment on above: Order Comment: Order Date: 01/05/23 Order Info: [id number] - CBCD Order Info: [id number] - SED Performed By: #### L 501.2400, L501.2450, L101.9900, L100.0100, L500.4050 #### [facility] [address] [place], [place], [id number] (074) Absolute Neut 3.6 X10 3/uL Normal 2.0-7.[address] [facility] Comment on above: Order Comment: Order Date: 01/05/23 Order Info: [id number] - CBCD Order Info: [id number] - SED Performed By: #### L 501.2400, L501.2450, L101.9900, L100.0100, L500.4050 #### [facility] [address] [place], [address] Basophils/100 WBC (Bld) 0.3 % Normal 0-1 [facility] Comment on above: Order Comment: Order Date: 01/05/23 Order Info: [id number] - CBCD Order Info: [id number] - SED Performed By: #### L 501.2400, L501.2450, L101.9900, L100.0100, L500.4050 #### [facility] [address] [place], [address] Eosinophils/100 WBC (Bld) 0.4 % Normal 0-[address] [facility] Comment on above: Order Comment: Order Date: 01/05/23 Order Info: [id number] - CBCD Order Info: [id number] - SED Performed By: #### L 501.2400, L501.2450, L101.9900, L100.0100, L500.4050 #### [facility] [address] [place], [address] Erythrocyte distribution width (RBC) [Ratio] 12.4 % Normal 11.6-14.[address] [facility] Comment on above: Order Comment: Order Date: 01/05/23 Order Info: [id number] - CBCD Order Info: [id number] - SED Performed By: #### L 501.2400, L501.2450, L101.9900, L100.0100, L500.4050 #### [facility] [address] [place], [address] Hematocrit (Bld) [Volume fraction] 43.0 % Normal 40-[address] [facility] Comment on above: Order Comment: Order Date: 01/05/23 Order Info: [id number] - CBCD Order Info: [id number] - SED Performed By: #### L 501.2400, L501.2450, L101.9900, L100.0100, L500.4050 #### [facility] [address] [place], [address] Hemoglobin (Bld) [Mass/Vol] 15.3 g/dL Normal 13.0-16.[address] [facility] Comment on above: Order Comment: Order Date: 01/05/23 Order Info: [id number] - CBCD Order Info: [id number] - SED Performed By: #### L 501.2400, L501.2450, L101.9900, L100.0100, L500.4050 #### [facility] [address] [place], [address] IG% 0.100 Normal 0.0-0.[address] [facility] Comment on above: Order Comment: Order Date: 01/05/23 Order Info: [id number] - CBCD Order Info: [id number] - SED Result Comment: IG% - Immature Granulocytes (promyelocytes, myelocytes and metamyelocytes) > 1% indicates that a LEFT SHIFT is Present. Performed By: #### L 501.2400, L501.2450, L101.9900, L100.0100, L500.4050 #### [facility] [address] [place], [address] Lymphocytes/100 WBC (Bld) 40.2 % Normal 19-[address] [facility] Comment on above: Order Comment: Order Date: 01/05/23 Order Info: [id number]- - CBCD Order Info: [id number] - SED Performed By: #### L 501.2400, L501.2450, L101.9900, L100.0100, L500.4050 #### [facility] [address] [place], [address] MCH (RBC) [Entitic mass] 31.5 pg Normal 27.0-32.[address] [facility] Comment on above: Order Comment: Order Date: 01/05/23 Order Info: [id number]- - CBCD Order Info: [id number] - SED Performed By: #### L 501.2400, L501.2450, L101.9900, L100.0100, L500.4050 #### [facility] [address] [place], [address] MCHC (RBC) [Mass/Vol] 35.6 g/dL Normal 32-36 [facility] Comment on above: Order Comment: Order Date: 01/05/23 Order Info: [id number] - CBCD Order Info: [id number] - SED Performed By: #### L 501.2400, L501.2450, L101.9900, L100.0100, L500.4050 #### [facility] [address] [place], [address] MCV (RBC) [Entitic vol] 88.7 fL Normal 80-94 [facility] Comment on above: Order Comment: Order Date: 01/05/23 Order Info: [id number] - CBCD Order Info: 76736-5 - SED Performed By: #### L 501.2400, L501.2450, L101.9900, L100.0100, L500.4050 #### [facility] [address] [place], [address] Monocytes/100 WBC (Bld) 6.1 % Normal 0-10 [facility] Comment on above: Order Comment: Order Date: 01/05/23 Order Info: 0184-1 - CBCD Order Info: 46954-2 - SED Performed By: #### L 501.2400, L501.2450, L101.9900, L100.0100, L500.4050 #### [facility] [address] [place], [address] Neutrophils/100 WBC (Bld) 52.9 % Normal 47-[address] [facility] Comment on above: Order Comment: Order Date: 01/05/23 Order Info: 0184-1 - CBCD Order Info: 44700-4 - SED Performed By: #### L 501.2400, L501.2450, L101.9900, L100.0100, L500.4050 #### [facility] [address] [place], [address] Nucleated RBC (Bld) [#/Vol] 0 10*3/uL Normal 0-[address] [facility] Comment on above: Order Comment: Order Date: 01/05/23 Order Info: 0184-1 - CBCD Order Info: 89444-8 - SED Performed By: #### L 501.2400, L501.2450, L101.9900, L100.0100, L500.4050 #### [facility] [address] [place], [address] Platelet mean volume (Bld) [Entitic vol] 9.1 fL Normal 6.2-12.[address] [facility] Comment on above: Order Comment: Order Date: 01/05/23 Order Info: 0184- - CBCD Order Info: 24614-5 - SED Performed By: #### L 501.2400, L501.2450, L101.9900, L100.0100, L500.4050 #### [facility] [address] [place], [address] Platelets (Bld) [#/Vol] 231 10*3/uL Normal 150-[address] [facility] Comment on above: Order Comment: Order Date: 01/05/23 Order Info: 0184-1 - CBCD Order Info: 09539-7 - SED Performed By: #### L 501.2400, L501.2450, L101.9900, L100.0100, L500.4050 #### [facility] [address] [place], [address] RBC (Bld) [#/Vol] 4.85 10*6/uL Normal 4.6-6.2 [facility] Comment on above: Order Comment: Order Date: 01/05/23 Order Info: 0184-1 - CBCD Order Info: 46180-4 - SED Performed By: #### L 501.2400, L501.2450, L101.9900, L100.0100, L500.4050 #### [facility] [address] [place], [address] RDW SD 40.7 fl Normal 35.1-43.[address] [facility] Comment on above: Order Comment: Order Date: 01/05/23 Order Info: 0184- - CBCD Order Info: 04148-9 - SED Performed By: #### L 501.2400, L501.2450, L101.9900, L100.0100, L500.4050 #### [facility] [address] [place], [address] WBC (Bld) [#/Vol] 6.9 10*3/uL Normal 4.4-11.0 [facility] Comment on above: Order Comment: Order Date: 01/05/23 Order Info: 0184- - CBCD Order Info: 78784-5 - SED Performed By: #### L 501.2400, L501.2450, L101.9900, L100.0100, L500.4050 #### [facility] [address] [place], [address] Comprehensive Metabolic Prof ilon 01-05-2023 Albumin [Mass/Vol] 4.1 g/dL Normal 3.2-5.0 [facility] Comment on above: Order Comment: Order Date: 01/05/23 Order Info: 0786-1 - CMP Order Info: 1797-10 - WENDI Order Info: 3040-3 - LIPASE Order Info: 3015-3 - TSH Performed By: #### L 501.2400, L501.2450, L101.9900, L100.0100, L500.4050 #### [facility] [address] [place], [address] Albumin/Globulin [Mass ratio] 1.3 {ratio} Normal 0.9-2.[address] [facility] Comment on above: Order Comment: Order Date: 01/05/23 Order Info: 0786-1 - CMP Order Info: 1797-10 - WENDI Order Info: 3040-3 - LIPASE Order Info: 6-3 - TSH Performed By: #### L 501.2400, L501.2450, L101.9900, L100.0100, L500.4050 #### [facility] [address] [place], [address] ALK P 41 U/L Low 45-[address] [facility] Comment on above: Order Comment: Order Date: 01/05/23 Order Info: 86-1 - CMP Order Info: 1797-10 - WENDI Order Info: 3040-3 - LIPASE Order Info: 3015-3 - TSH Performed By: #### L 501.2400, L501.2450, L101.9900, L100.0100, L500.4050 #### [facility] [address] [place], [address] ALT [Catalytic activity/Vol] 53 U/L Normal 16-[address] [facility] Comment on above: Order Comment: Order Date: 01/05/23 Order Info: 785-1 - CMP Order Info: 1797-10 - WENDI Order Info: 3040-3 - LIPASE Order Info: 301-3 - TSH Performed By: #### L 501.2400, L501.2450, L101.9900, L100.0100, L500.4050 #### [facility] [address] [place], [address] AST [Catalytic activity/Vol] 25 U/L Normal 15-[address] [facility] Comment on above: Order Comment: Order Date: 01/05/23 Order Info: 785-1 - CMP Order Info: 1797-10 - WENDI Order Info: 3040-3 - LIPASE Order Info: 3 - TSH Performed By: #### L 501.2400, L501.2450, L101.9900, L100.0100, L500.4050 #### [facility] [address] [place], [address] Bilirubin [Mass/Vol] 0.70 mg/dL Normal 0.20-1.00 [facility] Comment on above: Order Comment: Order Date: 01/05/23 Order Info: 86-1 - CMP Order Info: 1797-10 - WENDI Order Info: 3040-3 - LIPASE Order Info: 3016-3 - TSH Result Comment: For patients on eltrombopag therapy, use of Dimension [place] TBIL is not recommended. Performed By: #### L 501.2400, L501.2450, L101.9900, L100.0100, L500.4050 #### [facility] [address] [place], [address] BUN/CRE 19.6 RATIO Normal 10-[address] [facility] Comment on above: Order Comment: Order Date: 01/05/23 Order Info: 86-1 - CMP Order Info: 1797-10 - WENDI Order Info: 3040-3 - LIPASE Order Info: 3 - TSH Performed By: #### L 501.2400, L501.2450, L101.9900, L100.0100, L500.4050 #### [facility] [address] [place], [address] CA,Total 8.8 mg/dL Normal 8.5-10.[address] [facility] Comment on above: Order Comment: Order Date: 01/05/23 Order Info: 785-1 - CMP Order Info: 1797-10 - WENDI Order Info: 3040-3 - LIPASE Order Info: 3 - TSH Performed By: #### L 501.2400, L501.2450, L101.9900, L100.0100, L500.4050 #### [facility] [address] [place], [address] Chloride [Moles/Vol] 108 mmol/L High 98-107 [facility] Comment on above: Order Comment: Order Date: 01/05/23 Order Info: 07-1 - CMP Order Info: 1797-10 WENDI Order Info: 3040-3 - LIPASE Order Info: 3015-3 - TSH Performed By: #### L 501.2400, L501.2450, L101.9900, L100.0100, L500.4050 #### [facility] [address] [place], [address] CO2 [Moles/Vol] 27.0 mmol/L Normal 21.0-32.[address] [facility] Comment on above: Order Comment: Order Date: 01/05/23 Order Info: 785- - CMP Order Info: 1797-10 - WENDI Order Info: 0-3 - LIPASE Order Info: 3 - TSH Performed By: #### L 501.2400, L501.2450, L101.9900, L100.0100, L500.4050 #### [facility] [address] [place], [address] Creatinine [Mass/Vol] 1.07 mg/dL Normal 0.70-1.30 [facility] Comment on above: Order Comment: Order Date: 01/05/23 Order Info: 785-03 - CMP Order Info: 1797-10 WENDI Order Info: 3039-3 - LIPASE Order Info: 3015-05 - TSH Result Comment: The validity of the calculated GFR GFRAA in patients over 70 years has not been determined. Clinical correlation is essential. Performed By: #### L 501.2400, L501.2450, L101.9900, L100.0100, L500.4050 #### [facility] [address] [place], [address] EST GFR - AA 100 mL/min Normal >[address] [facility] Comment on above: Order Comment: Order Date: 01/05/23 Order Info: 785- - CMP Order Info: 1797-10 - WENDI Order Info: 0-3 - LIPASE Order Info: 3 - TSH Result Comment: Afri can Swiss GFR Calc Performed By: #### L 501.2400, L501.2450, L101.9900, L100.0100, L500.4050 #### [facility] [address] [place], [address] GAP 6 Normal 5-[address] [facility] Comment on above: Order Comment: Order Date: 01/05/23 Order Info: 785- - CMP Order Info: 1797-10 - WENDI Order Info: 0-3 - LIPASE Order Info: 3 - TSH Performed By: #### L 501.2400, L501.2450, L101.9900, L100.0100, L500.4050 #### [facility] [address] [place], [address] GFR/1.73 sq M.predicted among non-blacks MDRD (S/P/Bld) [Vol rate/Area] 83 mL/min/{1.73_m2} Normal >[address] [facility] Comment on above: Order Comment: Order Date: 01/05/23 Order Info: 785-1 - CMP Order Info: 1797-10 WENDI Order Info: 0-3 - LIPASE Order Info: 3 - TSH Result Comment: Non- GFR Calc Performed By: #### L 501.2400, L501.2450, L101.9900, L100.0100, L500.4050 #### [facility] [address] [place], [address] Globulin (S) [Mass/Vol] 3.2 g/dL Normal 2.2-4.2 [facility] Comment on above: Order Comment: Order Date: 01/05/23 Order Info: 0786-1 - CMP Order Info: 1797-10 WENDI Order Info: 3040-3 - LIPASE Order Info: 3 - TSH Performed By: #### L 501.2400, L501.2450, L101.9900, L100.0100, L500.4050 #### [facility] [address] [place], [address] Glucose [Mass/Vol] 86 mg/dL Normal 74-106 [facility] Comment on above: Order Comment: Order Date: 01/05/23 Order Info: 0786-1 - CMP Order Info: 1797-10 WENDI Order Info: 3040-3 - LIPASE Order Info: 3015-3 - TSH Performed By: #### L 501.2400, L501.2450, L101.9900, L100.0100, L500.4050 #### [facility] [address] [place], [address] Potassium [Moles/Vol] 4.0 mmol/L Normal 3.5-5.1 [facility] Comment on above: Order Comment: Order Date: 01/05/23 Order Info: 0786-1 - CMP Order Info: 1797-10 - WENDI Order Info: 3040-3 - LIPASE Order Info: 3016-3 - TSH Performed By: #### L 501.2400, L501.2450, L101.9900, L100.0100, L500.4050 #### [facility] [address] [place], [address] Sodium [Moles/Vol] 141 mmol/L Normal 136-145 [facility] Comment on above: Order Comment: Order Date: 01/05/23 Order Info: 785-1 - CMP Order Info: 1797-10 - WENDI Order Info: 3040-3 - LIPASE Order Info: 3016-3 - TSH Performed By: #### L 501.2400, L501.2450, L101.9900, L100.0100, L500.4050 #### [facility] [address] [place], [address] T PROT 7.3 g/dL Normal 6.4-8.[address] [facility] Comment on above: Order Comment: Order Date: 01/05/23 Order Info: 0786-1 - CMP Order Info: 1797-10 - WENDI Order Info: 3040-3 - LIPASE Order Info: 3016-3 - TSH Performed By: #### L 501.2400, L501.2450, L101.9900, L100.0100, L500.4050 #### [facility] [address] [place], [address] Urea nitrogen [Mass/Vol] 21 mg/dL High 7-[address] [facility] Comment on above: Order Comment: Order Date: 01/05/23 Order Info: 0786-1 - CMP Order Info: 1797-8 - WENDI Order Info: 3040-3 - LIPASE Order Info: 3016-3 - TSH Performed By: #### L 501.2400, L501.2450, L101.9900, L100.0100, L500.4050 #### [facility] [address] [place], [place], [address] Determination of erythrocyte mean corpuscular volume (MCV)Ordered By: Todd Guzman on 01-05-2023 MCV (RBC) [Entitic vol] 88.7 fL 80-94 [facility] Erythrocyte Sed Rateon 01-05 SED RATE < 1 Normal 0-[address] [facility] Comment on above: Order Comment: Order Date: 01/05/23 Order Info: 0184-1 - CBCD Order Info: 86345-5 - SED Performed By: #### L 501.2400, L501.2450, L101.9900, L100.0100, L500.4050 #### [facility] [address] [place], [place], [address] Erythrocyte sedimentation ra teOrdered By: Todd Guzman on 01-05-2023 ESR (Bld) [Velocity] mm/h 0-20 [facility] Hematocrit Auto (Bld) [Volum e fraction]Ordered By: Todd Guzman on 01-05-2023 Hematocrit (Bld) [Volume fraction] 43.0 % 40-[address] [facility] - Chemistry and C hemistry - challengeOrdered By: Todd Guzman on 01-05-2023 ALP [Catalytic activity/Vol] 41 U/L 45-[address] [facility] ALT [Catalytic activity/Vol] 53 U/L 16-[address] [facility] CO2 [Moles/Vol] 27.0 mmol/L 21.0-32.[address] [facility] Globulin (S) [Mass/Vol] 3.2 g/dL 2.2-4.2 [facility] Lipase [Catalytic activity/Vol] 74 U/L 13-[address] [facility] Comment on above: Please note:LIPASE r evised reference range effective 22. New Lipase methodology. Expected to produce lower values than the previous assay method. NEW Reference Range: 13 - 75 U/L Urea nitrogen/Creatinine [Mass ratio] 19.6 mg/mg 10-[address] [facility] - Hematology and Cell countsOrdered By: Todd Guzman on 01-05-2023 Erythrocyte distribution width (RBC) [Entitic vol] 40.7 fL 35.1-43.[address] [facility] Erythrocyte distribution width (RBC) [Ratio] 12.4 % 11.6-14.[address] [facility] Immature granulocytes/100 WBC (Bld) 0.100 % 0.0-0.[address] [facility] Comment on above: IG% - Immature Granu locytes (promyelocytes, myelocytes and metamyelocytes) > 1% indicates that a LEFT SHIFT is Present. MCH (RBC) [Entitic mass] 31.5 pg 27.0-32.[address] [facility] Nucleated RBC/100 WBC (Bld) [Ratio] 0 % 0-[address] [facility] Lipaseon 01-05-2023 Lipase [Catalytic activity/Vol] 74 U/L Normal 13-[address] [facility] Comment on above: Order Comment: Order Date: 01/05/23 Order Info: 0786-1 - CMP Order Info: 1798-8 - WENDI Order Info: 3040-3 - LIPASE Order Info: 3016-3 - TSH Result Comment: Benton franco note: LIPASE revised reference range effective 22. New Lipase methodology. Expected to produce lower values than the previous assay method. NEW Reference Range: 13 - 75 U/L Performed By: #### L 501.2400, L501.2450, L101.9900, L100.0100, L500.4050 #### [facility] [address] [place], [address] MCHC Auto (RBC) [Mass/Vol]Or dered By: Todd Guzman on 01-05-2023 MCHC (RBC) [Mass/Vol] 35.6 g/dL 32-36 [facility] No Panel InformationOrdered By: Todd Guzman on 01-05-2023 Estimated GFR (MDRD) Amer 100 mL/min >[address] [facility] Comment on above: GFR Calc Estimated GFR (MDRD) Non-Af Amer 83 mL/min >[address] [facility] Comment on above: Non- GFR Calc Thyroid Stimulating Hormone (TSH) 1.30 uIU/mL 0.358-3.[address] [facility] Platelets bldOrdered By: Roberto oscar Megan on 01-05-2023 Platelets (Bld) [#/Vol] 231 10*3/uL 150-[address] [facility] Serum or plasma albumin andrea urement (mass/volume)Ordered By: Todd Guzman on 01-05-2023 Albumin [Mass/Vol] 4.1 g/dL 3.2-5.0 [facility] Serum or plasma albumin/glob ulin mass ratioOrdered By: Todd Guzman on 01-05-2023 Albumin/Globulin [Mass ratio] 1.3 {ratio} 0.9-2.[address] [facility] Serum or plasma calcium andrea urement (mass/volume)Ordered By: Todd Guzman on 01-05-2023 Calcium [Mass/Vol] 8.8 mg/dL 8.5-10.1 [facility] Serum or plasma creatinine m easurement (mass/volume)Ordered By: Todd Guzman on 01-05-2023 Creatinine [Mass/Vol] 1.07 mg/dL 0.70-1.30 [facility] Comment on above: The validity of the calculated GFR & GFRAA in patients over 70 years has not been determined. Clinical correlation is essential. Serum or plasma urea nitroge n measurement (mass/volume)Ordered By: Todd Guzman on 01-05-2023 Urea nitrogen [Mass/Vol] 21 mg/dL 7-[address] [facility] Thin prep Papanicolaou smear with manual screeningOrdered By: Todd Guzman on 01-05-2023 Thin prep Papanicolaou smear with manual screening 25 U/L 15-[address] [facility] Thin prep Papanicolaou smear with manual screening 6 5-[address] [facility] Thyroid Stim Hormone (TSH)on 01-05-2023 TSH 1.30 uIU/mL Normal 0.358-3.[address] [facility] Comment on above: Order Comment: Order Date: 01/05/23 Order Info: 0786-1 - CMP Order Info: 1798-8 - WENDI Order Info: 3040-3 - LIPASE Order Info: 3016-3 - TSH Performed By: #### L 501.9520 #### [facility] [address] [place], [address] Surgery Visit Reporton 09-15 Surgery Visit Report [facility] [address] [place] [address] OFFICE VISIT Date of Service: 09/15/22 MR#: [id number] Acct: [id number] Name: MAGEN HENSLEY Rep #: [id number] : 1985 Provider: BARRETT akers Age/Sex: 37/M Location: [facility] Status: Signed Intake Vital Signs 05/11/22 12:17 Height 5 ft 9 in Intake Visit Reasons: ABSCESS CAUSING PAIN Chief Complaint: c/o rectal pain Allergies dexamethasone [From TobraDex] Allergy (Verified 09/15/22 13:18) LOVE [place] tobramycin Allergy (Verified 09/15/22 13:18) [facility] Medical History Abdominal pain Anxiety Anxiety Olivera's palsy Diarrhea Former smoker History of stress test Krishnamurthy-Brian syndrome Surgical History History of toe surgery Hx of eye surgery Hx of skin graft Hx of wisdom tooth extraction S/P vasectomy Family History Uncle Colon cancer Grandfather Cancer Skin cancer Social History Smoking Status: Former smoker second hand exposure: No alcohol intake: current alcohol intake frequency: holidays/special occasions only substance use type: does not use caffeine: Yes frequency: does not exercise HPI HPI HPI: Patient is a 37 y/o M I am seeing for a possible abscess near he anus. Patient notes he developed a small lump with associated pain approximately 1 week ago. He notes having a similar abscess/pain back in May. He relates/correlates this to change in bowel habits. Patient denies drainage from the area. He denies fever, chills. On May 11, 2022, Dr. Mg performed an EUA with of a perirectal abscess. Patient notes this lump seems to be in a different location. ROS General General: No weight change, appetite, fatigue, colon cancer, breast cancer or weakness HEENT HEENT: No difficulty swallowing, eye injury, eye surgery, swollen glands or hoarseness Endo Endocrine: No thyroid disease, diabetes mellitus, thyroid cancer, Hair loss, heat intolerance or cold intolerance Skin Skin: No rash or changing moles Breast Breast: No left breast lump, right breast lump, nipple discharge, breast pain, abnormal mammogram, abnormal US or breast enlargement Musc Musculoskeletal: No back problems, arthritis, rheumatoid arthritis, gout or joint pain Cardio Cardiovascular: No murmur, pacemaker, heart disease, atrial fibrillation, high blood pressure, heart attack, heart stent, palpitations, shortness of breat with exertion or chest pain Psych Psychiatric: No depression, anxiety or hearing voices Resp Respiratory: No shortness of breath, No sleep apnea, No cough, No COPD, No asthma, No emphysema and No wheezing Gastro Gastrointestinal: No abdominal pain, No nausea or vomiting, No diarrhea, No constipation, No blood in stool, No acid reflux, Yes hemorrhoids, Yes ulcers, No gallbladder problem and No black,tarry stools [place] Hematologic: No blood thinners, No blood disorders, No bleeding, No anemia and No blood clots Neuro Neurologic: No system reviewed and no additional complaints, except as documented, No as per HPI, No abnormal gait, No abnormal hearing, No abnormal movements, No abnormal speech, No behavioral changes, No burning sensations, No confusion, No convulsions, No disequilibrium, No dizziness, No localized weakness, No frequent falls, No headache(s), No lack of coordination, No loss of vision, No memory loss, No numbness, No other visual disturbances, No radicular pain, No restless legs, No sensory deficit, No syncope, No tingling, No tremor(s), No weakness and No other Exam Skin Other: Superior Anus- small palpable tender lesion with slight amount of erythema noted. Office Procedures I D Provider Documentation Provider Documentation: Procedure note Procedure: Incision and Drainage of infected sebaceous cyst Permit: Procedure, benefits, risks (include those of bleeding, infection, injury, anesthesia, and allergic reaction), and alternatives explained to the patient who voiced understanding of the information. Their questions were sought and answered. Patient agreed to proceed with the incision and drainage of infected sebaceous cyst. Permit signed and in chart. Indication: Infected sebaceous cyst Physician: Dina Dawn PA-C Description: Patient was placed in prone position. Area prepped with Betadine and draped in a sterile fashion. Local anesthetic administered with 4 cc of 0.5% Marcaine and 1% lidocaine. A linear incision was made and a small amount of purulent fluid was expressed. Cavity was probed to break up any pockets. Culture was not obtained. Cavity was (more content not included)... Normal [facility] Discharge Instructionon Discharge Instruction [facility] Medical Records Department [address] [place] [address] Instructions for Home/Discharge Instructions 05/11/22 1454 MR#: [id number] Acct: [id number] Name: MAGEN HENSLEY Rep #: [id number] : 1985 37 From: Raymundo Mg MD PCP: Dr. Todd Guzman MD Status:[facility] Discharge Instructions Diet Discharge Diet: Light diet - advance as tolerated Activity Discharge Activity: Return to Normal Activity, May Drive (tomorrow or when off of narcotics), May Shower and May Take a Tub Bath Weight Bearing Status: Weight bearing as tolerated Lifting Restrictions: none Dressing / Incision Call your doctor if your incision/area has: Continuous Slow Oozing, Sudden Increased Bleeding, Increased Pain/ Swelling, Increased Redness, Foul Smelling Discharge and Swelling at the incision site Call your doctor if you observe: Fever of 101 or Higher Cleanse incision/area with: Soap Water Additional Dressing/Incision Instructions:: Change dressing as needed, use underwear to keep pad in place Follow Up Care Please Follow Up With: Raymundo Mg MD When: Please call to schedule 1 week follow up appointment. [phone] Test Results: Test results from this visit will be discussed in further detail at your follow-up appointment, if applicable. Discharge Plan Admission Attending Provider: Raymundo Mg Primary Care Provider: Todd Guzman Discharge Orders/Prescriptions Prescriptions: New oxycodone 5 mg tablet 5 - 10 mg PO Q6H PRN (Reason: pain) 5 Days Qty: 20 0RF amoxicillin-pot clavulanate [Augmentin] 500-125 mg tablet 1 tab PO BID Qty: 14 0RF No Action tadalafil [Cialis] 5 mg Tablet 2.5 mg PO QODAY Referrals / Follow Up: Todd Guzman MD [Primary Care Provider] - Disposition Disposition (needs filled in before D/C Order can be placed): Home, Self Care 05/11/22 1458 Raymundo Mg MD CC: Dr. Todd Guzman MD Signed Normal [facility] Operative Reporton 3 Operative Report [facility] Medical Records Department [address] [place] [address] Operative Report 05/11/22 1452 MR#: [id number] Acct: [id number] Name: MAGEN HENSLEY Rep #: [id number] : 1985 37 From: Raymundo Mg MD PCP: Dr. Todd Guzman MD Status:[facility] Location: [place] [address] Report of Operation Date of Procedure: 05/11/22 Pre-Operative Diagnosis: Perirectal abscess Post-Operative Diagnosis: Same Surgery/Procedure Performed:: Exam under anesthesia with drainage of pararectal abscess Description of Procedure: Patient was brought back to the operating room and general anesthesia was induced. The patient was placed in lithotomy position and the perineum was prepped. An exam under anesthesia was performed. The patient appeared to have an olive sized collection within the posterior sphincter. It did not appear to be in the rectum or superior to the anal canal. There did not appear to be a thrombosed hemorrhoid. Made a small incision posterior to the anal canal in the perirectal skin. Using a hemostat the collection was entered and then a spread was performed. There is no purulent material that was re moved but the collection disappeared. There is no purulent material or significant bleeding but the area then appeared soft and the sphincter felt normal. Unsure if I drained an internal thrombosed hemorrhoid or if it was an abscess. There was minimal bleeding and the area was cleaned and a dressing was applied and the patient was taken to PACU in stable condition. He will be sent home on oral antibiotics in case this is an abscess. Admit VTE Documentation VTE Mechan Device Prophylaxis: SCD's 05/11/22 4255 Cosigner Signature (if applicable): CC: Dr. Raymundo Mg MD; Dr. Todd Guzman MD Signed Normal [facility] Surgery Visit Reporton 05-11 Surgery Visit Report [facility] [address] [place] [address] OFFICE VISIT Date of Service: 05/11/22 MR#: [id number] Acct: [id number] Name: MAGEN HENSLEY Rep #: [id number] : 1985 Provider: Dr. Raymundo rao MD Age/Sex: 37/M Location: [facility] Status: Signed Intake Vital Signs 05/04/22 07:08 Height 5 ft 9 in Intake Visit Reasons: c/o rectal pain Chief Complaint: c/o rectal pain Is patient in pain?: Yes Allergies dexamethasone [From TobraDex] Allergy (Verified 05/11/22 09:27) LOVE JOHNSONS tobramycin Allergy (Verified 05/11/22 09:27) LOVE JOHNSONS Medications tadalafil 5 mg tablet (Cialis) 2.5 mg PO QODAY 05/03/22 [History Confirmed 05/11/22] PFSH Medical History (Updated 05/11/22 @ 09:27 by Heidi Arreaga) Abdominal pain Anxiety Anxiety Olivera's palsy Diarrhea Former smoker History of stress 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 He reports the fissure had healed and then all of a sudden yesterday he had a new type of pain farther into his rectal area. He says that he has not been able to sit and has been extremely painful. There is no drainage or fevers or chills. ROS General General: No weight change, appetite, fatigue, colon cancer, breast cancer or weakness HEENT HEENT: No difficulty swallowing, eye injury, eye surgery, swollen glands or hoarseness Endo Endocrine: No thyroid disease, diabetes mellitus, thyroid cancer, Hair loss, heat intolerance or cold intolerance Skin Skin: No rash or changing moles Breast Breast: No left breast lump, right breast lump, nipple discharge, breast pain, abnormal mammogram, abnormal US or breast enlargement Musc Musculoskeletal: No back problems, arthritis, rheumatoid arthritis, gout or joint pain Cardio Cardiovascular: No murmur, pacemaker, heart disease, atrial fibrillation, high blood pressure, heart attack, heart stent, palpitations, shortness of breat with exertion or chest pain Psych Psychiatric: No depression, anxiety or hearing voices Resp Respiratory: No shortness of breath, No sleep apnea, No cough, No COPD, No asthma, No emphysema and No wheezing Gastro Gastrointestinal: No abdominal pain, No nausea or vomiting, No diarrhea, No constipation, No blood in stool, No acid reflux, Yes hemorrhoids, Yes ulcers, No gallbladder problem and No black,tarry stools [place] Hematologic: No blood thinners, No blood disorders, No bleeding, No anemia and No blood clots Neuro Neurologic: No system reviewed and no additional complaints, except as documented, No as per HPI, No abnormal gait, No abnormal hearing, No abnormal movements, No abnormal speech, No behavioral changes, No burning sensations, No confusion, No convulsions, No disequilibrium, No dizziness, No localized weakness, No frequent falls, No headache(s), No lack of coordination, No loss of vision, No memory loss, No numbness, No other visual disturbances, No radicular pain, No restless legs, No sensory deficit, No syncope, No tingling, No tremor(s), No weakness and No other Exam Const General: cooperative Orientation: alert and oriented x3 HENMT Head: normal to inspection Neck Neck: normal visual inspection and full ROM Chest Chest palpation inspection: normal inspection of the chest Resp Effort Inspection: normal respiratory effort Auscultation: clear to auscultation bilaterally Cardio Rate: regular rate Rhythm: regular rhythm GI Inspection: non-distended Palpation: soft and nontender Other: On rectal exam there is a tender area in the posterior rectal vault superior to the anus. Skin General: no rashes or lesions noted Neuro General: patient alert and patient oriented x3 Extrem General: full ROM Psych Appearance: grossly normal Mental Status: mental status grossly normal Assessment and Plan Assessment and Plan (1) Rectal pain: Status: Acute Plan: Patient is having a lot of pain and on rectal exam I did feel a firm area of the posterior rectum that was extremely tender. Unsure if the patient has a perirectal abscess superior to the anus in the posterior aspect. This could be thrombosis of an internal hemorrhoid (more content not included)... Normal [facility] Colonoscopy Reporton 023 Colonoscopy Report [facility] Medical Records Department [address] [place] [id number] Colonoscopy Report MR#: [id number] Acct: [id number] Name: MAGEN HENSLEY Rep #: [id number] : 1985 37 From: Raymundo Mg MD PCP: Dr. Todd Guzman MD Status:[facility] [place] Patient Name: Magen Hensley Procedure Date: 05/04/2022 7:47 AM Date of : 1985 Age: 37 Procedure: Colonoscopy Indications: Anal bleeding Providers: Raymundo Mg MD Medicines: Monitored Anesthesia Care Patient Profile: This is a 37 year old male. Refer to note in patient chart for documentation of history and physical. Last Colonoscopy: none. The patient's first colonoscopy is today. Complications: No immediate complications. Procedure: Pre-Anesthesia Assessment: - Prior to the procedure, a History and Physical was performed, and patient medications and allergies were reviewed. The patient's tolerance of previous anesthesia was also reviewed. The risks and benefits of the procedure and the sedation options and risks were discussed with the patient. All questions were answered, and informed consent was obtained. Prior Anticoagulants: The patient has taken no previous anticoagulant or antiplatelet agents. After reviewing the risks and benefits, the patient was deemed in satisfactory condition to undergo the procedure. After I obtained informed consent, the scope was passed under direct vision. Throughout the procedure, the patient's blood pressure, pulse, and oxygen saturations were monitored continuously. The pediatric colonoscope was introduced through the anus and advanced to the cecum, identified by appendiceal orifice and ileocecal valve. The colonoscopy was performed without difficulty. The patient tolerated the procedure well. The quality of the bowel preparation was good. Scope In: 7:56:51 AM Scope Withdrawal Time 0 hours 2 minutes 52 seconds Scope Out: 8:05:12 AM Total Procedure Duration Time 0 hours 8 minutes 21 seconds Findings: An anal fissure was found on perianal exam. The entire examined colon appeared normal on direct and retroflexion views. Impression: - Anal fissure found on perianal exam. - The entire examined colon is normal on direct and retroflexion views. - No specimens collected. Recommendation: - Discharge patient to home. - Resume previous diet. - Continue present medications. - Repeat colonoscopy in 10 years for screening purposes. Procedure Code(s): --- Professional --- 40511, Colonoscopy, flexible; diagnostic, including collection of specimen(s) by brushing or washing, when performed (separate procedure) Diagnosis Code(s): --- Professional --- K60.2, Anal fissure, unspecified K62.5, Hemorrhage of anus and rectum CPT copyright 2017 [employer]. All rights reserved. The codes documented in this report are preliminary and upon sprinkling system installer review may be revised to meet current compliance requirements. Raymundo Mg MD 05/04/2022 8:12:58 AM This report has been signed electronically. Number of Addenda: 0 Note Initiated On: 05/04/2022 7:47 AM 05/04/22 0813 Date Raymundo Mg MD Cosign Signature: Date (if indicated) CC: Dr. Raymundo Mg MD; Dr. Todd Guzman MD Date Dictated: 05/04/22746 Date Transcribed: Battery Inspector: FILIBERTO Signed Normal [facility] Surgery Visit Reporton 03-31 Surgery Visit Report [facility] [address] [place] [address] OFFICE VISIT Date of Service: 03/31/22 MR#: [id number] Acct: [id number] Name: MAGEN HENSLEY Rep #: [id number] : 1985 Provider: Dr. Raymundo rao MD Age/Sex: 36/M Location: [facility] [place] Status: Signed Intake Intake Visit Reasons: 2WK F/U HEMORRHOIDS Chief Complaint: hemorrhoids 2 wk f/u Allergies dexamethasone [From TobraDex] Allergy (Verified 03/31/22 08:17) LOVE JOHNSONS tobramycin Allergy (Verified 03/31/22 08:17) LOVE HOLM Medications escitalopram oxalate 10 mg tablet 10 mg PO DAILY 05/22/17 [History Confirmed 03/31/22] tadalafil 5 mg tablet ea PO 03/17/22 [History Confirmed 03/31/22] PFSH Medical History Abdominal pain Anxiety Diarrhea Krishnamurthy-Brian syndrome Surgical History Hx of skin graft Hx of wisdom tooth extraction S/P vasectomy Family History Uncle Colon cancer Grandfather Cancer Skin cancer Social History Smoking Status: Former smoker second hand exposure: No alcohol intake: current alcohol intake frequency: holidays/special occasions only substance use type: does not use caffeine: Yes frequency: does not exercise HPI HPI HPI: Patient says he is still having anal pain and blood in stool. Patient says that he was taking the cream but he says he was only using it once every other day. ROS General General: No weight change, appetite, fatigue, colon cancer, breast cancer or weakness HEENT HEENT: No difficulty swallowing, eye injury, eye surgery, swollen glands or hoarseness Endo Endocrine: No thyroid disease, diabetes mellitus, thyroid cancer, Hair loss, heat intolerance or cold intolerance Skin Skin: No rash or changing moles Breast Breast: No left breast lump, right breast lump, nipple discharge, breast pain, abnormal mammogram, abnormal US or breast enlargement Musc Musculoskeletal: No back problems, arthritis, rheumatoid arthritis, gout or joint pain Cardio Cardiovascular: No murmur, pacemaker, heart disease, atrial fibrillation, high blood pressure, heart attack, heart stent, palpitations, shortness of breat with exertion or chest pain Psych Psychiatric: No depression, anxiety or hearing voices Resp Respiratory: No shortness of breath, No sleep apnea, No cough, No COPD, No asthma, No emphysema and No wheezing Gastro Gastrointestinal: No abdominal pain, No nausea or vomiting, No diarrhea, No constipation, No blood in stool, No acid reflux, Yes hemorrhoids, Yes ulcers, No gallbladder problem and No black,tarry stools [place] Hematologic: No blood thinners, No blood disorders, No bleeding, No anemia and No blood clots Neuro Neurologic: No system reviewed and no additional complaints, except as documented, No as per HPI, No abnormal gait, No abnormal hearing, No abnormal movements, No abnormal speech, No behavioral changes, No burning sensations, No confusion, No convulsions, No disequilibrium, No dizziness, No localized weakness, No frequent falls, No headache(s), No lack of coordination, No loss of vision, No memory loss, No numbness, No other visual disturbances, No radicular pain, No restless legs, No sensory deficit, No syncope, No tingling, No tremor(s), No weakness and No other Exam Const General: cooperative Orientation: alert and oriented x3 HENMT Head: normal to inspection Neck Neck: normal visual inspection and full ROM Chest Chest palpation inspection: normal inspection of the chest Resp Effort Inspection: normal respiratory effort Auscultation: clear to auscultation bilaterally Cardio Rate: regular rate Rhythm: regular rhythm GI Inspection: non-distended Palpation: soft and nontender Skin General: no rashes or lesions noted Neuro General: patient alert and patient oriented x3 Extrem General: full ROM Psych Appearance: grossly normal Mental Status: mental status grossly normal Assessment and Plan Assessment and Plan (1) Blood in stool: Status: Acute (2) Fissure in ano: Status: Acute Orders: Orders Colonoscopy Today Plan Patient did not get any relief from the cream but he was only taking it every other day. I advised him to take it 3 times a day and to take it daily. I also discussed with him in detail colonoscopy and exam under anesthesia with possible treatment of the fissure. Patient elects to have colonoscopy first to check the entire colon for the source of bleeding and to check for fissure better while patient is asleep. If there is a fissure the patient would be interested in performing an exam under anesthesia at a later date wi (more content not included)... Normal [facility] Surgery Visit Reporton 03-17 Surgery Visit Report [facility] [address] [place] [address] OFFICE VISIT Date of Service: 03/17/22 MR#: [id number] Acct: [id number] Name: MAGEN HENSLEY Rep #: [id number] : 1985 Provider: Dr. Raymundo rao MD Age/Sex: 36/M Location: [facility] Status: Signed Intake Vital Signs 03/17/22 13:35 Height 5 ft 9 in Weight: 181 lb BMI 26.7 BP 122/84 H Blood Pressure Location Rt brachial Position Sitting Respiration 16 Intake Visit Reasons: HEMORRHOIDS Chief Complaint: hemorrhoids Air Antisubmarine Officer Required: No Is patient in pain?: No Allergies dexamethasone [From TobraDex] Allergy (Verified 03/17/22 13:36) LOVENERI CRANDALLS tobramycin Allergy (Verified 03/17/22 13:36) LOVE HOLM Medications escitalopram oxalate 10 mg tablet 10 mg PO DAILY 05/22/17 [History Confirmed 03/17/22] tadalafil 5 mg tablet ea PO 03/17/22 [History Confirmed 03/17/22] PFSH Medical History (Updated 03/17/22 @ 14:[address] Raymundo Mg MD) Abdominal pain Anxiety Diarrhea Krishnamurthy-Brian syndrome Surgical History (Updated 03/17/22 @ 13:38 by Iqra Marquez) Hx of skin graft Hx of wisdom tooth extraction S/P vasectomy Family History Uncle Colon cancer Grandfather Cancer Skin cancer Social History Smoking Status: Former smoker second hand exposure: No alcohol intake: current alcohol intake frequency: holidays/special occasions only substance use type: does not use caffeine: Yes frequency: does not exercise HPI HPI HPI: Patient is a 36-year-old male here complaining of anal pain. The patient reports that this started in 2018 and a captains occasionally. He usually happens after a large or firm bowel movement. He says usually lasts a few days and then goes away but this last episode is lasted over a week. He does note some blood with wiping. The pain has not been constant it comes and goes especially with sitting or having a bowel movement. ROS General General: No weight change, appetite, fatigue, colon cancer, breast cancer or weakness HEENT HEENT: No difficulty swallowing, eye injury, eye surgery, swollen glands or hoarseness Endo Endocrine: No thyroid disease, diabetes mellitus, thyroid cancer, Hair loss, heat intolerance or cold intolerance Skin Skin: No rash or changing moles Breast Breast: No left breast lump, right breast lump, nipple discharge, breast pain, abnormal mammogram, abnormal US or breast enlargement Musc Musculoskeletal: No back problems, arthritis, rheumatoid arthritis, gout or joint pain Cardio Cardiovascular: No murmur, pacemaker, heart disease, atrial fibrillation, high blood pressure, heart attack, heart stent, palpitations, shortness of breat with exertion or chest pain Psych Psychiatric: No depression, anxiety or hearing voices Resp Respiratory: No shortness of breath, No sleep apnea, No cough, No COPD, No asthma, No emphysema and No wheezing Gastro Gastrointestinal: No abdominal pain, No nausea or vomiting, No diarrhea, No constipation, No blood in stool, No acid reflux, Yes hemorrhoids, Yes ulcers, No gallbladder problem and No black,tarry stools [place] Hematologic: No blood thinners, No blood disorders, No bleeding, No anemia and No blood clots Neuro Neurologic: No system reviewed and no additional complaints, except as documented, No as per HPI, No abnormal gait, No abnormal hearing, No abnormal movements, No abnormal speech, No behavioral changes, No burning sensations, No confusion, No convulsions, No disequilibrium, No dizziness, No localized weakness, No frequent falls, No headache(s), No lack of coordination, No loss of vision, No memory loss, No numbness, No other visual disturbances, No radicular pain, No restless legs, No sensory deficit, No syncope, No tingling, No tremor(s), No weakness and No other Exam Const General: cooperative Orientation: alert and oriented x3 HENMT Head: normal to inspection Neck Neck: normal visual inspection and full ROM Chest Chest palpation inspection: normal inspection of the chest Resp Effort Inspection: normal respiratory effort Auscultation: clear to auscultation bilaterally Cardio Rate: regular rate Rhythm: regular rhythm GI Inspection: non-distended Palpation: soft and nontender Skin General: no rashes or lesions noted Neuro General: patient alert and patient oriented x3 Extrem General: full ROM Psych Appearance: grossly normal Mental Status: mental status grossly normal Assessment and Plan Assessment and Plan (1) Fissure in ano: Status: Acute Plan: I was unable to identify a clear fissure on physical exam with the patient was very painful. The patient's s (more content not included)... Normal [facility] Basophil percentageOrdered B y: Dr. Guzman on 02-18-2022 Bilirubin [Mass/Vol] 1.00 mg/dL 0.20-1.00 [facility] Comment on above: For patients on eltr ombopag therapy, use of Dimension [place] TBIL is not recommended. Chloride [Moles/Vol] 106 mmol/L 98-107 [facility] Glucose [Mass/Vol] 90 mg/dL 74-106 [facility] Potassium [Moles/Vol] 4.4 mmol/L 3.5-5.1 [facility] Protein [Mass/Vol] 7.5 g/dL 6.4-8.2 [facility] Sodium [Moles/Vol] 141 mmol/L 136-145 [facility] Laboratory - Chemistry and C hemistry - challengeOrdered By: Dr. Guzman on 02-18-2022 ALP [Catalytic activity/Vol] 54 U/L 45-[address] [facility] ALT [Catalytic activity/Vol] 36 U/L 16-[address] [facility] CO2 [Moles/Vol] 29.0 mmol/L 21.0-32.[address] [facility] Globulin (S) [Mass/Vol] 3.0 g/dL 2.2-4.2 [facility] Urea nitrogen/Creatinine [Mass ratio] 16.5 mg/mg 10-[address] [facility] No Panel InformationOrdered By: Dr. Guzman on 02-18-2022 Estimated GFR (MDRD) Amer 105 mL/min >[address] [facility] Comment on above: GFR Calc Estimated GFR (MDRD) Non-Af Amer 87 mL/min >[address] [facility] Comment on above: Non- GFR Calc Miscellaneous Test See comment [facility] Comment on above: TEST RESULT LIMITSHe patitis E Virus (HEV) IgG HEV IgG Negative NegativeThe Hepatitis E IgG assay is a qualitative EIA for thedetection of antibodies to Hepatitis E Virus. A result ofpositive indicates antibodies have been detected.Diagnosis of Hepatitis E Virus infection should be made inconjunction with other clinical signs and symptoms andother laboratory findings. Epidemiologic factors,clinical findings, exposure to endemic regions and otherlaboratory results should be considered when making adiagnosis.The performance characteristics of this test have beendetermined by [employer]. It has not been clearedor approved by the U.S. Food and Drug Administration.Results should be used in conjunction with clinicalfindings, and should not form the sole basis for adiagnosis or treatment decision. ____ TESTING PERFORMED AT [employer]. ORIGINAL REPORT ON FILE IN LAB CONTAINS ADDITIONAL TEST SITE INFORMATION. Serum or plasma albumin andrea urement (mass/volume)Ordered By: Dr. Guzman on 02-18-2022 Albumin [Mass/Vol] 4.5 g/dL 3.2-5.0 [facility] Serum or plasma albumin/glob ulin mass ratioOrdered By: Dr. Guzman on 02-18-2022 Albumin/Globulin [Mass ratio] 1.5 {ratio} 0.9-2.[address] [facility] Serum or plasma calcium andrea urement (mass/volume)Ordered By: Dr. Guzman on 02-18-2022 Calcium [Mass/Vol] 9.4 mg/dL 8.5-10.1 [facility] Serum or plasma creatinine m easurement (mass/volume)Ordered By: Dr. Guzman on 02-18-2022 Creatinine [Mass/Vol] 1.03 mg/dL 0.70-1.30 [facility] Comment on above: The validity of the calculated GFR & GFRAA in patients over 70 years has not been determined. Clinical correlation is essential. Serum or plasma urea nitroge n measurement (mass/volume)Ordered By: Dr. Guzman on 02-18-2022 Urea nitrogen [Mass/Vol] 17 mg/dL 7-[address] [facility] Thin prep Papanicolaou smear with manual screeningOrdered By: Dr. Guzman on 02-18-2022 Thin prep Papanicolaou smear with manual screening 26 U/L [address] [facility] Thin prep Papanicolaou smear with manual screening 6 - [facility] ECG 12-LEADon 02-09-2022 ECG 12-LEAD IMPRESSION: Sinus rhythm Electronically Signed On 02-09-2022 12:17:18 EST by Umang Wick [facility] CARECOORDon 02-08-2022 [facility] Care Managment Initial Assessment Date: 02/08/2022 Patient Name: Magen Hensley : 1985 Patient Information Source of Information: Patient Cognition/Language: WFL - Within Functional Limits Permission given to speak with patient sales representative aircraft/caregi fartun as indicated: Yes Confirmation of Payer with patient/family: Yes Payer Name: [employer] [place] [employer] : No Confirmation of Primary Care Physician: Confirmed PCP Name: Yordan Guzman Seen in last 2 years?: Yes Primary Caregiver: Self If assistance needed, confirmed caregiver ready, willing and able to care for patient at discharge: Yes Confirmed with: family Living Arrangements Current Residence: House Number of Floors Number of Entry Steps: Bed/Bath Levels: Facility: Facility Name: Plan to Return: Lives with: Spouse/significant other Support Systems: Spouse/significant other, Family members, Friends/neighbors Activities of Daily Living Ambulation: Independent Bathing/Dressing: Independent Elimination/Continenc e/Toileting: Independent Feeding: Independent Who Assists with Activities of Daily Living: Instrumental Activities of Daily Living Prescription Coverage: Yes Pharmacy Used: Medication Management: Independent Transportation/Shoppi ng: Independent Transportation Mode: Car Needs Assistance with Transportation at Discharge: No Meal Preparation: Independent Laundry/Cleaning: Independent Finances/Bill Paying: Independent Communication: Independent Types of Care Services/Equipment Utilized Care Services: Dialysis Type: Durable Medical Equipment: Patient's Goal/Discharge Plan Patient expects to be discharged to: home Discharge Planning Actions: No needs identified Patient's Choice Rights and [employer] and Collaborative Relationships Disclosed as Indicated for Post-Acute Care: NA Interdisciplinary Team Engagement: Social Work Referral for: Additional Information Met at bedside- he is dressed - wanting to leave- independent and ambulatory- per epic notes EEG canceled per neuro and signed off- he drove self and wants to drive home- secure messaged to dr pemberton to discharge- today - denies needs- and will follow up as out pt - all other testing done- Batsheva Santos RN [facility] 02-08-2022 Consult General Neurology Consult Patient: Magen Hensley Date of : 1985 Acct: [id number] PCP: Yordan Guzman Date of Admission: 02/07/2022 Date of Service: Pt seen/examined on 02/08/22 Chief Complaint: R sided facial numbness History Of Present Illness: 36 y.o. male with past medical history significant for Krishnamurthy Brian syndrome, toxic epidermal necrolysis, s/p LE skin graft presents with complaint/s of CP, R facial weakness, dysphagia, speech disturbance. Patient reports symptoms began approximately one week ago with CP. Patient reports he often gets self limiting mid sternal CP, lasting a few days and resolving. He has attributed this to high stress. He denies associated SOB or palpitations. Also about one week ago patient felt that his tongue felt a little numb, as if it had a thin layer of lidocaine on it. Taste was intact however he and his felt that his speech was a little off. Not dysarthria per se, but his mouth did not match his words. Shortly thereafter he felt as if the right side of his face was a little weak and just did not feel right. Although numbness and paresthesia are documented in ED notes, patient reports he had no sensory disturbance. But his smile was asymmetric and felt harder to move that side of the face. He has had no recent illness, travel, or medication changes. He does do outdoor activities in [facility] and other areas of [place], but denies any recent mosquito or tick bites. He has no SHOOK, neck stiffness, or fever. On arrival here, BP was notable at 153/117. CBC WNL. CMP WNL aside from mildly elevated alk phos. Troponins have been negative. UA negative. ETOH and UDS negative. MRI Brain w/wo contrast negative for acute abn or significant findings. He does have an asymmetric smile with some restriction on R (no actual facial droop) and very subtle upper R face weakness with inability to completely squeeze R eye shut. 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 Authorizing Provider tadalafil (Cialis) 2.5 MG tablet Take 2.5 mg by mouth daily. Historical Provider, Current Hospital Medications: Current Facility-Administered Medications: acetaminophen (Tylenol) tablet 650 mg, 650 mg, Oral, q4h PRN, KEVIN Call CNP aspirin EC tablet 81 mg, 81 mg, Oral, Daily OR aspirin suppository 300 mg, 300 mg, Rectal, Daily, KEVIN Call CNP [Held by provider] atorvastatin (Lipitor) tablet 40 mg, 40 mg, Oral, Nightly, KEVIN Call CNP labetalol (Normodyne,Trandate) injection 10 mg, 10 mg, IntraVENous, q10 min PRN, KEVIN Call CNP ondansetron ODT (Zofran-ODT) disintegrating tablet 4 mg, 4 mg, Oral, q8h PRN OR ondansetron (Zofran) injection 4 mg, 4 mg, IntraVENous, q6h PRN, KEVIN Call CNP polyethylene glycol (PEG) 3350 (Miralax) packet 17 g, 17 g, Oral, Daily PRN, KEVIN Call CNP sodium chloride 0.9 % infusion, 5-250 mL/hr, IntraVENous, PRN, KEVIN Call CNP sodium chloride 0.9% (NS) flush 10 mL, 10 mL, IntraVENous, 2 times per day, KEVIN Call CNP, 10 mL at 02/07/222037 sodium chloride 0.9% (NS) flush 10 mL, 10 mL, IntraVENous, PRN, KEVIN Call CNP Allergies: Tobramycin Social History: TOBACCO: reports that he quit smoking about 11 years ago. His smoking use included cigarettes. He has never used smokeless tobacco. ETOH: reports that he does not currently use alcohol. RECREATIONAL DRUG USE: Social History Substance and Sexual Activity Drug Use Never Family History: No family history on file. REVIEW OF SYSTEMS: CONSTITUTIONAL: negative for fevers and chills, nightsweats EYES: negative for irritation and redness, change in visual acuity HEENT: negative for earaches, ear drainage, and nasal congestion RESPIRATORY: negative for dry cough, wheezing and chest pain CARDIOVASCULAR: negative for palpitations, dyspnea, chest pain GASTROINTESTINAL: negative for nausea, vomiting and change in bowel habits GENITOURINARY: negative for change in frequency, dysuria and hematuria ENDOCRINE: negative for heat or cold intolerance of significant weight change MUSCULOSKELETAL: negative for myalgias, arthralgias and pain NEUROLOGICAL: Positive for R facial numbness, dysphagia, dysarthria BEHAVIOR/PSYCH: negative for significant mood changes, anxiety, or tremayne (more content not included)... Normal [facility] Progress Noteon 02-08-2022 Progress Note Nutrition Assessment Type and Reason for Visit: Initial, Positive Nutrition Screen Nutrition Recommendations/Plan: Continue regular diet as currently ordered Please record % meals consumed in flow-sheet for most accurate nutrient intake assessment. Obtain actual standing scale weight as able for most accurate anthropometric data RDN to continue to monitor weekly: fluid accumulation, weight, skin integrity, trends in lab values, PO intake, improvement in clinical status, discharge planning. 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 Presented to [facility] with slurring of his speech and some intermittent chest pain, felt he was having ?a mini-stroke?. NIH in ED=0; unremarkable CT of head, and chest Xray. Significant labs on admit: AST(88), AlkPhos(167), Bilirubin(2.1). Brain MRI on 02/07 with no acute findings. Attempted to visit this morning, with MD. later in day, noted EEG canceled and neuro signed off. Patient wants to leave today. Estimated Daily Nutrient Needs: Energy Requirements Based On: Kcal/kg Weight Used for Energy Requirements: [place] Weight for Energy Calculation (kg): 75 kg Total Energy Requirements (kcals/day): 0624-7897 (25-30 kcal/kg IBW) Weight Used for Protein Requirements: [place]ott Weight in Kg Used for Protein Requirements: 75 kg Estimated Total Protein (g/day): 75-90 (1.0-1.2 g protein/kg IBW) Estimated Daily Total Fluid (ml/day): per MD Nutrition Related Findings: No skin break down or edema noted. Juwan score=20. No GI symptoms. Initial NIH=0, pending neuro eval and brain MRI. Lasb and meds reviewed. Wound Type: None Current Nutrition Therapies: Adult diet Regular Current Oral Intake Average Meal Intake: Unable to assess Average Supplements Intake: None Ordered Anthropometric Measures: Height: 177.8 cm (5' 10) Current Body Weight: 83.9 kg Weight Source: Stated Admission Body Weight: 83.9 kg (stated 02/07/22) Usual Body Weight: (no recent weight on file to review) % Weight Change (Calculated): 0 [place]ott Body Weight (lbs) (Calculated): 166 lbs [place]der[place]ott Body Weight (Kg) (Calculated): 75 kg % [place]ott Body Weight (Calculated): 111.4 % BMI (kg/m2) (Calculated): 26.5 Weight Adjustment For: No Adjustment BMI Categories: Overweight (BMI 25.0-29.9) Nutrition Interventions: Nutrition Education/Counseling: Education not indicated Coordination of Nutrition Care: Continue to monitor while inpatient Plan of Care discussed with: JOYCE Goals: Goals: Meet at least 75% of estimated needs, prior to discharge Nutrition Monitoring and Evaluation: Behavioral-Environmen leana Outcomes: None Identified Food/Nutrient Intake Outcomes: Food and Nutrient Intake Physical Signs/Symptoms Outcomes: Biochemical Data, Chewing or Swallowing, GI Status, Nausea or Vomiting, Weight, Skin, Nutrition Focused Physical Findings, Meal Time Behavior, Hemodynamic Status, Fluid Status or Edema Discharge Planning: Continue current diet Lashae Astudillo RDN. LDN Contact: *[phone] [facility] Progress Note Physical Therapy Pt's Vikas score is 100/100 at this time. Current PT orders are eval and treat per Vikas under 100 or below baseline. PT will sign off at this time due to vikas score. If needs arise please reconsult and place regular eval and treat orders. Thank you. [facility] Progress Note Speech-Language Pathology Patient passed the Nursing Swallowing Screening and is on a Regular diet, Cardiac: Low fat, Low cholesterol. High Fiber, MIKE with Thin liquids. Completed speech orders as per stroke protocol. [facility] Progress Note Occupational Therapy Received orders for OT Eval and Treat per Vikas Index. Vikas Index was 100 prior to admit and is 100 on admit. Per Therapy Services guidelines, no OT indicated. Discharge OT. Katy Liz MS, OTR/L [facility] CT HEAD WO IV CONTRASTon CT HEAD WO IV CONTRAST Patient Name: MAGEN HENSLEY [facility]#: [id number] Exam Date/Time: 02/07/2022 12:29 Procedure: CT HEAD WO IV CONTRAST Ordering Provider: AGUILAR NICOLE Reason For Exam: CT HEAD: CLINICAL INDICATION: TECHNIQUE: Transaxial CT sequence performed through the head with 3 mm reconstruction. Sagittal and Coronal reconstruction images included. Dose reduction employed with automated exposure control. COMPARISON: None FINDINGS: Ventricles and Extra-axial spaces: The ventricles and sulci are unremarkable in appearance. No abnormal extracerebral collection identified. Cerebral and cerebellar parenchyma: The knott-white differentiation is intact. No midline shift. Visualized Paranasal sinuses and mastoid air cells: The visualized paranasal sinuses and mastoid air cells are clear. Calvarium and skull base: No displaced skull fracture. IMPRESSION: Unremarkable head CT. Report Dictated on Electronically Signed By: Rory Padilla Electronically Signed Date/Time: 02/07/2022 12:38 PM EST Normal [facility] ECG 12-LEADon 02-07-2022 ECG 12-LEAD IMPRESSION: Sinus rhythm Borderline right axis deviation Borderline T abnormalities, inferior leads no st elevation or depression, T wave inversions in III, normal intervals, no stemi noted Electronically Signed On 02-07-2022 11:23:18 EST by Kasi Melissa Normal [facility] ED Nursing Noteon 02-07-2022 ED Nursing Note Visual Acuity: R=20/32; L=20/20; B=20/20 Chelsea Dutton RN 02/07/22 1304 [facility] ED Nursing Note Patient to CT. Chelsea Dutton RN 02/07/22 1217 [facility] ED Provider Noteon ED Provider Note - Attestation signed by Kasi Melissa DO at 02/09/2022 7:24 PM I performed a history and physical examination of Magen Hensley and discussed his management with Dr. Aguilar. I agree with the history, physical, assessment, and plan of care, with the following exceptions: None I was present for the following procedures: None Time Spent in Critical Care of the patient: None Time spent in discussions with the patient and family: Kasi Melissa DO EMERGENCY DEPARTMENT ENCOUNTER Pt Name: Magen Hensley Birthdate 1985 Date of evaluation: 02/07/2022 ED Provider: Jayy Aguilar PA-C CHIEF COMPLAINT Chief Complaint Patient presents with Numbness Chest Pain Altered Mental Status Pt here for right sided facial numbness, left sided chest pain, and altered mental status per the pt, Pt believes he has been having these issues for the last week. EDcare was supervised by Dr. Melissa who independently examined and evaluated the patient. Please see their attestation note for further details. HISTORY OF PRESENT ILLNESS (Location/Symptom, Timing/Onset, Context/Setting, Quality, Duration, Modifying Factors, Severity) Note limiting factors. I wore appropriate PPE for the entirety of this encounter. HPI Magen Hensley is a 36 y.o. male who presents to the emergency department for a multitude of complaints. Patient states that he had chest pain about 1 week ago for 3 days. He noted midsternal chest pain that did not radiate. He states that it then subsided by itself. Patient also endorsing right-sided facial numbness. He states that he feels altered and feels that he is speaking to slowly for his brain. Patient states that his noted that his speech seemed to be different. Patient also endorsing numbness to his tongue and seems to be having difficulty chewing. Patient denies any trouble swallowing. Patient denies any numbness tingling or weakness in his extremities. Patient also states that he is concerned that his blood pressure was high today and has neverhad problems with high blood pressure. Patient also states that his eyelash fall out when he touches his eye. He states that he feels that he is cognitively declining. Patient denies any drug or alcohol use. 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 Patient states that he feels that he had a mini stroke. Patient denies any current chest pain or shortness of breath. Denies any changes in vision. Denies any loss of coordination. Denies any abdominal pain, constipation, diarrhea or urinary symptoms. Nursing Notes were reviewed. REVIEW OF SYSTEMS Review of Systems Constitutional: Negative for fever, chills and fatigue. HENT: Numbness of his tongue. Right-sided facial drooping. Negative for congestion, rhinorrhea and sore throat. Eyes: Negative for photophobia and visual disturbance. Respiratory: Negative for cough and shortness of breath. Cardiovascular: Chest pain, subsided. Negative for palpitations and leg swelling. Gastrointestinal: Negative for abdominal pain, constipation, diarrhea, nausea and vomiting. Genitourinary: Negative for difficulty urinating, dysuria, frequency and urgency. Musculoskeletal: Negative for arthralgias and myalgias. Skin: Negative for color change and rash. Neurological: Negative for dizziness, light-headedness, numbness and headaches. Psychiatric/Behaviora l: The patient is not nervous/anxious. All other systems reviewed and are negative. PAST MEDICAL HISTORY History reviewed. No pertinent past medical history. SURGICAL HISTORY History reviewed. No pertinent surgical history. CURRENT MEDICATIONS Previous Medications No medications on file ALLERGIES Tobramycin FAMILY HISTORY No family history on file. SOCIAL HISTORY Social History Socioeconomic History Marital status: SCREENINGS NIH Stroke Scale 1A. Level of Consciousness: Alert, Keenly Responsive 1B. Ask Month and Age: Both Questions Right 1C. Blink Eyes & Squeeze Hands: Performs Both Tasks 2. Best Gaze: Normal 3. Visual: No Visual Loss 4. Facial Palsy: Partial Paralysis 5A. Motor - Left Arm: No Drift 5B. Motor - Right Arm: No Drift 6A. Motor - Left Leg: No Drift 6B. Motor - Right Leg: No Drift 7. Limb Ataxia: Absent 8. Sensory Loss: Normal 9. Best Language: No Aphasia 10. Dysarthria: Normal 11. Extinction and Inattention: No Abnormality NIH Stroke Scale: 2 PHYSICAL EXAM ED Triage Vitals [02/07/22 1115] Temp Heart Rate Resp BP 36.9 ?C (98.4 ?F) 95 18 (!) 153/117 SpO2 Temp Source Heart Rate Source Patient Position 99 % Temporal Monitor -- BP Location FiO2 (%) -- -- Physical Exam GENERA (more content not included)... Normal [facility] ED Provider Note Emergency Department Encounter [facility] EMERGENCY DEPT Patient: Magen Hensley : 1985 Date of Evaluation: 02/07/2022 ED Supervising Physician: Kasi Melissa DO I independently examined and evaluated Magen Hensley. This will serve as my Supervisory note as the shaft tender of record and shared attestation. I did perform a substantive portion of the visit including all aspects of the Medical Decision Making. I wore appropriate PPE for the entirety of this encounter. In brief, Magen Hensley is a 36 y.o. male that presents to the emergency department for multiple complaints. The patient states that he did have Krishnamurthy-Brian and T EN several years ago secondary to tobramycin. Patient states that he has had some slurring of his speech she has had some intermittent chest pain and has had some additional complaints that have been ongoing for several days if not weeks. Focused exam: Patient's physical exam was unremarkable. Patient had an NIH of 0. Was speaking in full clear coherent sentences, no focal deficits noted was moving upper and lower extremities normally. Brief ED course/MDM: Patient did have lab work consisting of a CMP which is relatively unremarkable, troponin was negative, CBC is negative. CT of the head and chest x-ray are otherwise unremarkable. Patient did have an EKG which was independently interpreted by myself and was otherwise normal. The patient's did arrive to the emergency department and was able to provide some additional history on the patient. She had stated that he did have significant drooping of his face and slurring of his speech. Given these findings there is a concern for a possible TIA. At this time we have elected to admit the patient to the hospital. Family and patient were agreeable and amenable to this plan had no further questions and has since been admitted to the hospital. All diagnostic, treatment, and disposition decisions were made by myself in conjunction with the Resident. I also supervised thornton portions of any procedures performed by the Resident. For all further details of the patient's emergency department visit, please see their documentation. (Comment: Please note this report has been produced using speech recognition software and may contain errors related to that system including errors in grammar, punctuation, and spelling, as well as words and phrases that may be inappropriate. If there are any questions or concerns please feel free to contact the dictating provider for clarification.) Kasi Melissa, DO [employer] Kasi Melissa DO 02/07/22 1410 [facility] ANES [place] 04-13-2019 ANES POST HNO ID: [id number] Author: Klever Melgoza Service: Anesthesiology Author Type: Physician Type: Anesthesia PostOp Filed: 04/13/2019 2:00 PM Note Text: POST ANESTHESIA EVALUATION NOTE SERVICE DATE: 04/13/2019 SERVICE TIME: 2:00 PM : 1985 Vitals: 04/13/19 1118 04/13/19 1305 Temp: 37.1 ?C (98.8 ?F) 36.7 ?C (98.1 ?F) 04/13/19 1118 04/13/19 1305 04/13/19 1328 BP: 113/70 105/69 112/72 04/13/19 1305 04/13/19 1328 Pulse: 87 77 04/13/19 1118 04/13/19 1305 04/13/19 1328 Resp: 16 18 17 04/13/19 1118 04/13/19 1328 SpO2: 100% 99% Validated Vital Signs: Yes POST ANES STATUS: No apparent anesthetic complications. The patient is appropriately hydrated with stable respiratory and cardiovascular status. Patient has safe and adequate airway control. The patient has appropriate pain relief and no significant post operative nausea or vomiting. The patient has achieved baseline mental status. Intra-Operative Events: No Significant Anesthesia Events Further assessment by Anesthesia Service: None Other Remarks: SIGNATURE: Klever Melgoza MD PATIENT NAME: Magen Hensley DATE: April 13, 2019 TIME: 1:59 PM [place] [facility] [place]ES PREOP HNO ID: [id number] Author: Klever Melgoza Service: Anesthesiology Author Type: Physician Type: Anesthesia PreOp Filed: 04/13/2019 10:45 AM Note Text: ANESTHESIOLOGY DAY OF SURGERY NOTE SERVICE DATE: 04/13/2019 SERVICE TIME: 10:44 AM : 1985 Procedure(s) (LRB): DACRYOCYSTORHINOSTOMY [1535] (Right) Surgeon(s): Raymundo Leonardo Estimated body mass index is 27.91 kg/m? as calculated from the following: Height as of 09/01/18: 175.3 cm (5' 9). Weight as of 09/01/18: 85.7 kg (189 lb). Most recent hematocrit and potassium results: No results found for this basename: HCT,HEMATOCRIT,K,POTA SSIUM ANES DOS/PREOP NOTE: Vitals: There were no vitals filed for this visit. 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 FAMILY HISTORY Problem Relation Age of Onset - Diabetes Mother Maternal side - Heart Father Paternal side - Heart Problems Social History: Social History Tobacco Use - Smoking status: Never Smoker - Smokeless tobacco: Former User Substance Use Topics - Alcohol use: No - Drug use: No No current facility-administered medications on file prior to encounter. Current Outpatient Medications on File Prior to Encounter Medication Sig - PARoxetine ER (PAXIL CR) 25 mg 24 hr tablet Take 25 mg by mouth once daily. - sildenafil (VIAGRA) 100 mg tablet Take 100 mg by mouth as needed. - cephALEXin (KEFLEX) 500 mg capsule Take 500 mg by mouth twice daily. - escitalopram oxalate (LEXAPRO ORAL) Take by mouth. No current facility-administered medications for this encounter. Allergies: ALLERGIES Allergen Reactions - Tobramycin Hives TENS- Navarro Brian Syndrome DOS EXAM: Adequate NPO Status: Yes Anesthetic Risks, Benefits, Alternatives, Personnel and Consent Discussed: Yes Patient agrees to proceed: Yes Previous Anesthesia: No history of adverse event Airway Assessment: MP 3; Neck ROM: Full ROM without neurologic symptoms; Airway Evaluation: No significant abnormalities Symptoms of Sleep Apnea: None Dentition: Teeth intact Additional Physical Exam: Lungs: Patient health status unchanged since recent history and physical. See history and physical for exam findings. Cardiac: Patient health status unchanged since recent history and physical. See history and physical for exam findings. Additional Pertinent Findings: N/A Blood Products: Not anticipated for this procedure Anesthetic Plan: MAC with general as back up Anesthetic Monitoring: Standard ASA Monitors Pain Management Plan: Parenteral or Oral ASA Class: 2 Other Medical Problems: see chart Chronic Beta Chava medication administered within 24 hours: N/A I have interviewed and examined the patient. I have reviewed the medical record and/or the pre-anesthesia evaluation, pertinent labs, and test results. Significant changes in the patient's condition since the History and Physical, not otherwise documented in primary service progress notes: No This contains updated information obtained within 48 hours of Surgery/Procedure. SIGNATURE: Klever Melgoza MD PATIENT NAME: Magen Hensley DATE: April 13, 2019 TIME: 10:44 AM CSN: [id number] [facility] HISTORY PHYSICALon 0 HISTORY PHYSICAL HNO ID: [id number] Author: Raymundo Leonardo Service: Ophthalmology Author Type: Physician Type: HANDP Filed: 04/13/2019 12:02 PM Note Text: UPDATED HISTORY AND PHYSICAL EXAMINATION SERVICE DATE: 04/13/2019 SERVICE TIME: 12:01 PM PHYSICAL EXAM MUST BE COMPLETED ON ADMISSION The History and Physical (completed in the past 30 days) has been reviewed and the patient has been examined. The contents accurately reflect the patient's condition with the following additions or revisions since the HANDP was completed. Examination indicates no changes. This HANDP can be found in the scanned documents dated 04/03/2019. SIGNATURE: Raymundo Leonardo MD PATIENT NAME: Magen Hensley DATE: April 13, 2019 TIME: 12:01 PM PAGER: [facility] OPERATIVE NOon 04-13-2019 OPERATIVE NO HNO ID: [id number] Author: Raymundo Leonardo Service: Ophthalmology Author Type: Physician Type: Operative Report Filed: 04/13/2019 1:02 PM Note Text: OPERATIVE/PROCEDURE REPORT LOG ID: [id number] Surgery/Procedure Date: 04/13/2019 INCISION/PROCEDURE START TIME: 12:27 PM INCISION CLOSE/PROCEDURE END TIME: 1:00 PM Surgeon(s)/Procedural ist(s) and Superintendent Plant Protection(s): Surgeon(s) and Role: * Raymundo Leonardo - Primary Procedure(s): Procedure(s) (LRB): DACRYOCYSTORHINOSTOMY [1535] (Right) Pre-Op/Pre-Procedure Diagnosis: Pre-Op Diagnosis Codes: * Nasolacrimal duct obstruction, acquired, 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 Operative Indication(s): dacryocystitis . Anesthesia: Monitored Anesthesia Care Procedure Details: Patient was brought in the operating room, placed under adequate local anesthesia. The face was prepped and draped in the usual sterile fashion for Right tear duct surgery. A Right medial canthal incision was made. Dissection was carried out to the level of the lacrimal fossa. A Banco elevator was used to raise the tissue from the lacrimal fossa which was then infractured. The bony ostium was created using Kerrison rongeurs. Anterior ethmoidectomy and middle turbinectomy was performed at this time after stripping the nasal mucosa. The lacrimal sac was then entered and the anterior and posterior flaps of the sac were excised. The system was then intubated. The nasal packing was removed from the nose. The stents were guided into the nose using a grooved director. They were secured in the nose over a white rubber bumper. The anastomotic site was then packed with Gelfoam and thrombus. The incision was closed using deep sutures of 4-0 chromic and skin sutures of 7-0 Vicryl. A Steri- Strip was placed over the incision. The lacrimal stent was in good position at the end of the case. The patient was returned to the recovery room in satisfactory condition. Estimated Blood Loss: Minimal unless noted here. Specimens: * No specimens in log * Implantable Devices: Implant Name Type Inv. Item Serial No. Containers Sales Representative Lot No. [id number] No. Used SYS MONO-CRWFRD LACRIMAL INTUB - [id number] Implant SYS MONO-CRWFRD LACRIMAL INTUB [facility] OPHTHALMIC [id number] Right 1 Drains: None unless noted here. Complications: None. I/primary surgeon/proceduralist performed the entire procedure. 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, acquired, 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] Allergies: Tobramycin Date Verified: 04/13/19 Lab Values No results within the last 30 days for the following basenames: K,HCT No progress notes entered within the past 30 days [facility] ANES Temo 09-01-2018 ANES POST HNO ID: [id number] Author: Damian Flores MD Service: Anesthesiology Author Type: Anesthesiologist Type: Anesthesia PostOp Filed: 09/01/2018 10:15 AM Note Text: POST ANESTHESIA EVALUATION NOTE SERVICE DATE: 09/01/2018 SERVICE TIME: 1015 : 1985 Vitals: 09/01/18 0828 09/01/18 1007 Temp: 37.4 ?C (99.4 ?F) 37.1 ?C (98.7 ?F) 09/01/18 0828 09/01/18 1007 BP: 132/82 129/83 09/01/18 0828 09/01/18 1007 Pulse: 73 87 09/01/18 0828 09/01/18 1007 Resp: 16 16 09/01/18 0828 09/01/18 1007 SpO2: 100% 98% Validated Vital Signs: Yes POST ANES STATUS: No apparent anesthetic complications. The patient is appropriately hydrated with stable respiratory and cardiovascular status. Patient has safe and adequate airway control. The patient has appropriate pain relief and no significant post operative nausea or vomiting. The patient has achieved baseline mental status. Intra-Operative Events: No Significant Anesthesia Events Further assessment by Anesthesia Service: None Other Remarks: SIGNATURE: Damian Flores MD PATIENT NAME: Magen Hensley DATE: September 01, 2018 TIME: 10:15 AM PAGER/CONTACT #: [facility] ANES PREOPon 09-01-2018 ANES PREOP HNO ID: [id number] Author: Daiman Flores MD Service: Anesthesiology Author Type: Anesthesiologist Type: Anesthesia PreOp Filed: 09/01/2018 8:34 AM Note Text: ANESTHESIOLOGY DAY OF SURGERY NOTE SERVICE DATE: 09/01/2018 SERVICE TIME: 30 : 1985 Procedure(s) (LRB): DACRYOCYSTORHINOSTOMY (Left) Surgeon(s): Raymundo Leonardo Estimated body mass index is 27.91 kg/m? as calculated from the following: Height as of this encounter: 175.3 cm (5' 9). Weight as of this encounter: 85.7 kg (189 lb). 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 FAMILY HISTORY Problem Relation Age of Onset - Diabetes Mother Maternal side - Heart Father Paternal side - Heart Problems Social History: Social History Tobacco Use - Smoking status: Never Smoker - Smokeless tobacco: Former User Substance Use Topics - Alcohol use: No - Drug use: No No current facility-administered medications on file prior to encounter. Current Outpatient Medications on File Prior to Encounter: escitalopram oxalate (LEXAPRO ORAL) Take by mouth. Current Facility-Administered Medications Medication Dose Route Frequency Provider Last Rate Last Dose - lactated ringers infusion 30 mL/hr INTRAVENOUS CONTINUOUS Raymundo Leonardo Allergies: ALLERGIES Allergen Reactions - Tobramycin Hives TENS- Navarro Brian Syndrome DOS EXAM: Adequate NPO status: Yes Anesthetic risks, benefits, alternatives, personnel and consent discussed: Yes Patient agrees to proceed: Yes Previous Anesthesia: No history of adverse event. Airway Assessment: MP 1; Neck ROM: Full ROM without neurologic symptoms; Airway Evaluation: Le Present Symptoms of Sleep Apnea: Male gender Dentition: Teeth intact Additional Physical Exam: Lungs: Patient health status unchanged since recent history and physical. See history and physical for exam findings. Cardiac: Patient health status unchanged since recent history and physical. See history and physical for exam findings. Blood Products: Not anticipated for this procedure. Anesthetic Plan: MAC with Sedation and Standard ASA Monitors Pain Management Plan: Parenteral or Oral ASA Class: 2 Other Medical Problems: None Chronic Beta Chava medication administered within 24 hours: N/A I have interviewed and examined the patient. I have reviewed the medical record and/or the pre-anesthesia evaluation, pertinent labs, and test results. Significant changes in the patient's condition since the History and Physical, not otherwise documented in primary service progress notes: No This contains updated information obtained within 48 hours of Surgery/Procedure. SIGNATURE: Damian Flores MD PATIENT NAME: Magen Hensley DATE: September 01, 2018 TIME: 8:33 AM CSN: [id number] [facility] HISTORY PHYSICALon 9 HISTORY PHYSICAL HNO ID: [id number] Author: Raymundo Leonardo Service: Ophthalmology Author Type: Physician Type: HANDP Filed: 09/01/2018 9:02 AM Note Text: UPDATED HISTORY AND PHYSICAL EXAMINATION SERVICE DATE: 09/01/2018 SERVICE TIME: 9:02 AM PHYSICAL EXAM MUST BE COMPLETED ON ADMISSION The History and Physical (completed in the past 30 days) has been reviewed and the patient has been examined. The contents accurately reflect the patient's condition with the following additions or revisions since the HANDP was completed. Examination indicates no changes. This HANDP can be found in the scanned documents dated 08/28/18. SIGNATURE: Raymundo Leonardo MD PATIENT NAME: Magen Hensley DATE: September 01, 2018 TIME: 9:02 AM PAGER: [facility] NURSING PROGon 09-01-2018 NURSING PROG HNO ID: [id number] Author: Sujata WesleyRn) SAIMA Matthews Service: Nursing Author Type: Registered Nurse Type: Nursing Progress Note Filed: 09/05/2018 11:37 AM Note Text: Pt reached post op by phone. States he is on his way to office to see Dr Leonardo. States has been some shifting in the tube and is getting that checked. [facility] NURSING PROG HNO ID: [id number] Author: Jade (Rn) SAIMA Colindres Service: ? Author Type: Registered Nurse Type: Nursing Progress Note Filed: 09/01/2018 8:44 AM Note Text: Left eye inner aspect reddened and crusty. States has been on oral antibiotics for the last 2 weeks and to continue after OR until script is complete. [facility] OPERATIVE NOon 09-01-2018 OPERATIVE NO HNO ID: [id number] Author: Raymundo Gómez Malissa Service: Ophthalmology Author Type: Physician Type: Operative Report Filed: 09/01/2018 9:55 AM Note Text: OPERATIVE/PROCEDURE REPORT LOG ID: [id number] Surgery/Procedure Date: 09/01/2018 INCISION/PROCEDURE START TIME: 9:12 AM INCISION CLOSE/PROCEDURE END TIME: 9:50 AM Surgeon(s)/Procedural ist(s) and Superintendent Plant Protection(s): Surgeon(s) and Role: * Raymundo Gómez Malissa - Primary Procedure(s): Procedure(s) (LRB): DACRYOCYSTORHINOSTOMY (Left) Pre-Op/Pre-Procedure Diagnosis: Pre-Op Diagnosis Codes: * Nasolacrimal duct obstruction, acquired, 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 Operative Indication(s): infection. Anesthesia: Monitored Anesthesia Care Procedure Details: Patient was brought in the operating room, placed under adequate local anesthesia. The face was prepped and draped in the usual sterile fashion for Left tear duct surgery. A Left medial canthal incision was made. Dissection was carried out to the level of the lacrimal fossa. A Banco elevator was used to raise the tissue from the lacrimal fossa which was then infractured. The bony ostium was created using Kerrison rongeurs. Anterior ethmoidectomy and middle turbinectomy was performed at this time after stripping the nasal mucosa. The lacrimal sac was then entered and the anterior and posterior flaps of the sac were excised. The system was then intubated. The nasal packing was removed from the nose. The stents were guided into the nose using a grooved director. They were secured in the nose over a white rubber bumper. The anastomotic site was then packed with Gelfoam and thrombus. The incision was closed using deep sutures of 4-0 chromic and skin sutures of 7-0 Vicryl. A Steri- Strip was placed over the incision. The lacrimal stent was in good position at the end of the case. The patient was returned to the recovery room in satisfactory condition. Estimated Blood Loss: Minimal unless noted here. Specimens: Specimen ID Type Site Comments Sent To [id number] Tissue Other See Note left tear duct Pathology Routine Implantable Devices: * No implants in log * Drains: None unless noted here. Complications: None. I/primary surgeon/proceduralist performed the entire procedure. 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 Todd Guzman Work Phone: [facility] 05-11-2022 18:06-0500 Diastolic blood pressure 65 mm[Hg] Dr. Todd Guzman Work Phone: [facility] 05-11-2022 18:06-0500 Heart rate 100 /min Dr. Todd Guzman Work Phone: [facility] 05-11-2022 18:06-0500 Respiratory rate 16 /min Dr. Todd Guzman Work Phone: [facility] 05-11-2022 18:06-0500 SaO2% (BldA) [Mass fraction] 99 % Dr. Todd Guzman Work Phone: [facility] 05-11-2022 18:06-0500 Systolic blood pressure 107 mm[Hg] Dr. Todd Guzman Work Phone: [facility] 05-11-2022 12:17-0500 Body height 175.[address] Todd Guzman Work Phone: [facility] 05-11-2022 12:17-0500 Body mass index (BMI) [Ratio] 26 kg/m2 Dr. Todd Guzman Work Phone: [facility] 05-11-2022 12:17-0500 Body weight [address] Todd Guzman Work Phone: 6(250)069-872022 [address] 05-04-2022 08:25-0500 Body temperature 98.5 [degF] Dr. Todd Guzman Work Phone: 0(846)568-690028 [place] [address] 05-04-2022 08:25-0500 Diastolic blood pressure 63 mm[Hg] Dr. Todd Guzman Work Phone: 0(811)354-782728 [place] [address] 05-04-2022 08:25-0500 Heart rate 68 /min Dr. Todd Guzman Work Phone: 8(053)665-231222 [address] 05-04-2022 08:25-0500 Respiratory rate 16 /min Dr. Todd Guzman Work Phone: 3(385)685-543828 [place] [address] 05-04-2022 08:25-0500 SaO2% (BldA) [Mass fraction] 97 % Dr. Todd Guzman Work Phone: 1(934)489-913928 [place] [address] 05-04-2022 08:25-0500 Systolic blood pressure 101 mm[Hg] Dr. Todd Guzman Work Phone: 0(722)476-226022 [address] 05-04-2022 07:08-0500 Body height 175.[address] Todd Guzman Work Phone: 5(426)664-303522 [address] 05-04-2022 07:08-0500 Body mass index (BMI) [Ratio] 26 kg/m2 Dr. Todd Guzman Work Phone: 8(450)868-066422 [address] 05-04-2022 07:08-0500 Body weight [address] Todd Guzman Work Phone: 6(624)139-435322 [address] 03-17-2022 13:35-0500 Body mass index (BMI) [Ratio] 26.7 kg/m2 Dr. Todd Guzman Work Phone: [facility] 03-17-2022 13:35-0500 Body weight 82.[address] Todd Guzman Work Phone: [facility] 03-17-2022 13:35-0500 Diastolic blood pressure 84 mm[Hg] Dr. Todd Guzman Work Phone: [facility] 03-17-2022 13:35-0500 Respiratory rate 16 /min Dr. Todd Guzman Work Phone: [facility] 03-17-2022 13:35-0500 Systolic blood pressure 122 mm[Hg] Dr. Todd Guzman Work Phone: [facility] Encounters Encounter Date Encounter Type Care Provider Facility Start: 02-14-2023 End: 02-14-[address] Todd Guzman Work Phone: [facility] Work Phone: Start: 02-14-2023 End: 02-14-2023 ambulatory Todd Guzman Facility:[facility] Start: 01-14-2023 End: 01-14-2023 ambulatory Trish Hay Facility:[facility] [place] Start: 01-14-2023 End: 01-14-[address] Todd Guzman Work Phone: [facility] Work Phone: Start: 01-11-2023 End: 01-11-2023 ambulatory Raymundo Mg Facility:[facility] Start: 01-11-2023 End: 01-11-[address] Todd Guzman Work Phone: [facility] Work Phone: Start: 01-05-2023 End: 01-05-[address] [facility] Start: 01-05-2023 End: 01-05-[address] Todd Guzman Work Phone: [facility] Work Phone: Start: 09-15-2022 End: 09-15-2022 ambulatory Todd Guzman Facility:[facility] Start: 09-15-2022 End: 09-15-[address] Todd Guzman Work Phone: [facility] Work Phone: Start: 05-11-2022 ambulatory Todd Guzman [facility] ity:[facility] Start: 05-11-2022 Non-patient / Non-visit Dr. Todd Guzman Work Phone: [facility] Start: 05-11-2022 End: 05-11-2022 ambulatory Todd Guzman Facility:[facility] Start: 05-11-2022 End: 05-11-2022 Admission to same day surgery center Dr. Todd Guzman Work Phone: [facility] Start: 05-11-2022 End: 05-11-[address] Todd Guzman Work Phone: [facility] Work Phone: Start: 05-11-2022 End: 05-11-[address] Todd Guzman Work Phone: [facility] Start: 05-04-2022 End: 05-04-2022 ambulatory Todd Guzman Facility:[facility] Start: 05-04-2022 Non-patient / Non-visit Dr. Todd Guzman Work Phone: [facility] Start: 05-04-2022 End: 05-04-2022 Admission to same day surgery center Dr. Todd Guzman Work Phone: [facility] Start: 05-04-2022 End: 05-04-[address] Todd Guzman Work Phone: [facility] Work Phone: Start: 03-31-2022 End: 03-31-2022 ambulatory Raymundo Jarrellbatool Facility:[facility] Start: 03-31-2022 End: 03-31-[address] Todd Guzman Work Phone: [facility] Start: 03-17-2022 End: 03-17-2022 ambulatory Todd Guzman Facility:[facility] Start: 03-17-2022 End: 03-17-[address] Todd Guzman Work Phone: [facility] Start: 02-18-2022 End: 02-18-[address] [facility] Work Phone: Start: 02-18-2022 End: 02-18-20[address] [facility] Start: 02-07-2022 End: 02-08-2022 [facility] Start: 02-07-2022 End: 02-08-2022 Evaluation and management of inpatient [facility] Procedures Date Procedure Procedure Detail Performing Clinician Start: 02-14-2023 CT of abdomen with contrast Dr. Todd Guzman Work Phone: Start: 05-11-[address] Denzel Guzman Work Phone: Start: 05-04-[address] Costa Guzman Work Phone: Plan of Treatment Date Care Activity Detail Author Start: 05-11-2022 Patient discharge [facility] Start: 05-04-2022 Colonoscopy flx dx w/collj spec when pfrmd DIAGNOSTIC COLONOSCOPY [facility] Start: 05-04-2022 Patient discharge [facility] Colonoscopy [facility] Patient referral [facility] Work Phone: Protein measurement [facility] Payers Date Payer Category Payer Self-pay [id number] 2010 Unknown [id number] Unknown [id number] 2.16.8 [id number] Unknown [id number] 2.16.8 [id number] Unknown [id number] 2.16.8 [id number] Unknown [id number] 2.16.8 [id number] Unknown [id number] 2.16.8 [id number] Unknown [id number] 2.16.8 [id number] Unknown [id number] 2.16.8 [id number] Unknown [id number] 2.16.8 [id number] Unknown [id number] 2.16.8 [id number] Unknown [id number] 2.16.8 [id number] Unknown [id number] 2.16.8 [id number] Unknown [id number] 2.16.8 [id number] Social History Date Type Detail Facility Start: 06-09-2018 End: 01-14-2023 Tobacco smoking status NHIS Unknown if ever smoked [facility] Start: 1985 Sex Assigned At Male W [facility] Goals Date Patient Goal Desired Activity /State Mental Status Date Assessment Result Facility 05-11-2022 Cognitive function Voice/Name [facility] Work Phone: 05-04-2022 Cognitive function Touch/Shaking [facility] Work Phone: Clinical Notes 02-07-2022 to 05-11-2022 Note Date & Type Note Facility 05-11-2022 Discharge summary Note Date/Time May 11, 2022 2:55 pm [facility] Medical Records Department [address] [place] [address] Instructions for Home/Discharge Instructions 05/11/22 1454 MR#: [id number] Acct: [id number] Name: MAGEN HENSLEY Rep #:[id number] : 1985 37 From: Raymundo elmore MD PCP: Dr. Todd Guzman MD Status: [facility] Discharge Instructions Diet Discharge Diet: Light diet - advance as tolerated Activity Discharge Activity: Return to Normal Activity, May Drive (tomorrow or when off of narcotics), May Shower and May Take a Tub Bath Weight Bearing Status: Weight bearing as tolerated Lifting Restrictions: none Dressing / Incision Call your doctor if your incision/area has: Continuous Slow Oozing, Sudden Increased Bleeding, Increased Pain/ Swelling, Increased Redness, Foul Smelling Discharge and Swelling at the incision site Call your doctor if you observe: Fever of 101 or Higher Cleanse incision/area with: Soap & Water Additional Dressing/Incision Instructions:: Change dressing as needed, use underwear to keep pad in place Follow Up Care Please Follow Up With: Raymundo Mg MD When: Please call to schedule 1 week follow up appointment. [phone] Test Results: Test results from this visit will be discussed in further detail at your follow-up appointment, if applicable. Discharge Plan Admission Attending Provider: Raymundo Mg Primary Care Provider: Todd Guzman Discharge Orders/Prescriptions Prescriptions: New oxycodone 5 mg tablet 5 - 10 mg PO Q6H PRN (Reason: pain) 5 Days Qty: 20 0RF amoxicillin-pot clavulanate [Augmentin] 500-125 mg tablet 1 tab PO BID Qty: 14 0RF No Action tadalafil [Cialis] 5 mg Tablet 2.5 mg PO QODAY Referrals / Follow Up: Todd Guzman MD [Primary Care Provider] - Disposition Disposition (needs filled in before D/C Order can be placed): Home, Self Care 05/11/22 6227<Electronically signed by Raymundo Mg MD>Raymundo Mg MD CC: Dr. Todd Guzman MD ~ Signed [facility] Work Phone: 1(622) 450-737603-07-2023 History and physical note Author Dr. Mg [facility] May 11, 2022 2:05pm Note Date/Time May 11, 2022 2:05 pm [facility] Medical Records Department [address] [place] [address] History & Physical Exam 05/11/22 1404 MR#: [id number] Acct: [id number] Name: MAGEN HENSLEY Rep #:[id number] : 1985 37 From: Raymundo elmore MD PCP: Dr. Todd Guzman MD Status: [facility] Location: [place] [address] History and Physical Date of Admission: 05/11/22 Intake Vital Signs ? 05/04/2306:08 Height 5 ft 9 in Intake Visit Reasons:?c/o rectal pain Chief Complaint: c/o rectal pain Is patient in pain?: Yes Allergies dexamethasone [From TobraDex] Allergy (Verified 05/11/22 09:27) LOVE JOHNSONStobramycin Allergy (Verified 05/11/22 09:27) LOVE JOHNSONS Medications tadalafil 5 mg tablet (Cialis) 2.5 mg PO QODAY 05/03/22 [History Confirmed 05/11/22] PFSH Medical History?(Updated 05/11/22 @ 09:27 by Heidi Arreaga) Abdominal pain Anxiety Anxiety Olivera's palsy Diarrhea Former smoker History of stress test Krishnamurthy-Brian syndrome Surgical History? History of toe surgery Hx of eye surgery Hx of skin graft Hx of wisdom tooth extraction S/P vasectomy Family History? Uncle Colon cancerGrandfather Cancer ?? ? Skin cancer Social History? Smoking Status:? Former smoker second hand exposure:? No alcohol intake:? current alcohol intake frequency: holidays/special occasions only substance use type:? does not use caffeine:? Yes frequency:? does not exercise HPI HPI HPI: The patient was recently treated for a fissure.? He reports the fissure had healed and then all of a sudden yesterday he had a new type of pain farther intohis rectal area.? He says that he has not been able to sit and has been extremely painful.? There is no drainage or fevers or chills. ROS General General: No weight change, appetite, fatigue, colon cancer, breast cancer or weakness HEENT HEENT: No difficulty swallowing, eye injury, eye surgery, swollen glands or hoarseness Endo Endocrine: No thyroid disease, diabetes mellitus, thyroid cancer, Hair loss, heat intolerance or cold intolerance Skin Skin: No rash or changing moles Breast Breast: No left breast lump, right breast lump, nipple discharge, breast pain, abnormal mammogram, abnormal US or breast enlargement Musc Musculoskeletal: No back problems, arthritis, rheumatoid arthritis, gout or joint pain Cardio Cardiovascular: No murmur, pacemaker, heart disease, atrial fibrillation, high blood pressure, heart attack, heart stent, palpitations, shortness of breat withexertion or chest pain Psych Psychiatric: No depression, anxiety or hearing voices Resp Respiratory: No shortness of breath, No sleep apnea, No cough, No COPD, No asthma, No emphysema and No wheezing Gastro Gastrointestinal: No abdominal pain, No nausea or vomiting, No diarrhea, No constipation, No blood in stool, No acid reflux, Yes hemorrhoids, Yes ulcers, Nogallbladder problem and No black,tarry stools [place] Hematologic: No blood thinners, No blood disorders, No bleeding, No anemia and No blood clots Neuro Neurologic: No system reviewed and no additional complaints, except as documented, No as per HPI, No abnormal gait, No abnormal hearing, No abnormal movements, No abnormal speech, No behavioral changes, No burning sensations, No confusion, No convulsions, No disequilibrium, No dizziness, No localized weakness, No frequent falls, No headache(s), No lack of coordination, No loss ofvision, No memory loss, No numbness, No other visual disturbances, No radicular pain, No restless legs, No sensory deficit, No syncope, No tingling, No tremor(s), No weakness and No other Exam Const General: cooperative Orientation: alert and oriented x3 HENMT Head: normal to inspection Neck Neck: normal visual inspection and full ROM Chest Chest palpation & inspection: normal inspection of the chest Resp Effort & Inspection: normal respiratory effort Auscultation: clear to auscultation bilaterally Cardio Rate: regular rate Rhythm: regular rhythm GI Inspection: non-distended Palpation: soft and nontender Other: On rectal exam there is a tender area in the posterior rectal vault superior to the anus. Skin General: no rashes or lesions noted Neuro General: patient alert and patient oriented x3 Extrem General: full ROM Psych Appearance: grossly normal Mental Status: mental status grossly normal Assessment and Plan Assessment and Plan (1) Rectal pain: ?Status:?Acute ?Plan: Patient is having a lot of pain and on rectal exam I did feel a firm area of theposterior rectum that was extremely tender.? Unsure if the patient has a perirectal abscess superior to the anus in the posterior aspect.? This could be thrombosis of an internal hemorrhoid although would be a little more rare.? I recommended an exam under anesthesia.? If it is an abscess I will drain and thenstart him on antibiotics.? I am seeing if precertification can get approved so he can have this as an add-on later today but if not I will send him to the ER to get approved through there and I will take him this afternoon.? I discussed the risks of bleeding, infection, need for further surgery.? Patient understandsall the risks and is willing to proceed. Raymundo Mg MD Pager: [facility] [address] [place] [address], [address] [place] [address] Office: 05/11/22 140 <Electronically signed by Raymundo Mg MD> Cosigner Signature (if applicable): CC: Dr. Raymundo Mg MD; Dr. Todd Guzman MD~ Signed [facility] Work Phone: 1(100) 682-567903-07-2023 [facility] Medical Records Department [address] [place], [place] [id number] History Physical Exam 05/11/22 1404 MR#: [id number] Acct: [id number] Name: MAGEN HENSLEY Rep #: [id number] : 1985 37 From: Raymundo Mg MD PCP: Dr. Todd Guzman MD Status:[facility] Location: [place] [address] History and Physical Date of Admission: 05/11/22 Intake Vital Signs ??? 05/04/2306:08 Height 5 ft 9 in Intake Visit Reasons:???c/o rectal pain Chief Complaint: c/o rectal pain Is patient in pain?: Yes Allergies dexamethasone [From TobraDex] Allergy (Verified 05/11/22 09:27) LOVE JOHNSONStobramycin Allergy (Verified 05/11/22 09:27) LOVE JOHNSONS Medications tadalafil 5 mg tablet (Cialis) 2.5 mg PO QODAY 05/03/22 [History Confirmed 05/11/22] PFSH Medical History???(Updated 05/11/22 @ 09:27 by Heidi Arreaga) Abdominal pain Anxiety Anxiety Olivera's palsy Diarrhea Former smoker History of stress test Krishnamurthy-Brian syndrome Surgical History??? History of toe surgery Hx of eye surgery Hx of skin graft Hx of wisdom tooth extraction S/P vasectomy Family History??? Uncle Colon cancerGrandfather Cancer ? Skin cancer Social History??? Smoking Status:??? Former smoker second hand exposure:??? No alcohol intake:??? current alcohol intake frequency: holidays/special occasions only substance use type:??? does not use caffeine:??? Yes frequency:??? does not exercise HPI HPI HPI: The patient was recently treated for a fissure.??? He reports the fissure had healed and then all of a sudden yesterday he had a new type of pain farther into his rectal area.??? He says that he has not been able to sit and has been extremely painful.??? There is no drainage or fevers or chills. ROS General General: No weight change, appetite, fatigue, colon cancer, breast cancer or weakness HEENT HEENT: No difficulty swallowing, eye injury, eye surgery, swollen glands or hoarseness Endo Endocrine: No thyroid disease, diabetes mellitus, thyroid cancer, Hair loss, heat intolerance or cold intolerance Skin Skin: No rash or changing moles Breast Breast: No left breast lump, right breast lump, nipple discharge, breast pain, abnormal mammogram, abnormal US or breast enlargement Musc Musculoskeletal: No back problems, arthritis, rheumatoid arthritis, gout or joint pain Cardio Cardiovascular: No murmur, pacemaker, heart disease, atrial fibrillation, high blood pressure, heart attack, heart stent, palpitations, shortness of breat with exertion or chest pain Psych Psychiatric: No depression, anxiety or hearing voices Resp Respiratory: No shortness of breath, No sleep apnea, No cough, No COPD, No asthma, No emphysema and No wheezing Gastro Gastrointestinal: No abdominal pain, No nausea or vomiting, No diarrhea, No constipation, No blood in stool, No acid reflux, Yes hemorrhoids, Yes ulcers, No gallbladder problem and No black,tarry stools [place] Hematologic: No blood thinners, No blood disorders, No bleeding, No anemia and No blood clots Neuro Neurologic: No system reviewed and no additional complaints, except as documented, No as per HPI, No abnormal gait, No abnormal hearing, No abnormal movements, No abnormal speech, No behavioral changes, No burning sensations, No confusion, No convulsions, No disequilibrium, No dizziness, No localized weakness, No frequent falls, No headache(s), No lack of coordination, No loss of vision, No memory loss, No numbness, No other visual disturbances, No radicular pain, No restless legs, No sensory deficit, No syncope, No tingling, No tremor(s), No weakness and No other Exam Const General: cooperative Orientation: alert and oriented x3 [facility] Head: normal to inspection Neck Neck: normal visual inspection and full ROM Chest Chest palpation inspection: normal inspection of the chest Resp Effort Inspection: normal respiratory effort Auscultation: clear to auscultation bilaterally Cardio Rate: regular rate Rhythm: regular rhythm GI Inspection: non-distended Palpation: soft and nontender Other: On rectal exam there is a tender area in the posterior rectal vault superior to the anus. Skin General: no rashes or lesions noted Neuro General: patient alert and patient oriented x3 Extrem General: full ROM Psych Appearance: grossly normal Mental Status: mental status grossly normal Assessment and Plan Assessment and Plan (1) Rectal pain: ?Status:???Acute ?Plan: Patient is having a lot of pain and on rectal exam I did feel a firm area of the posterior rectum that was extremely tender.??? Unsure if the patient has a perire (more content not included)...[facility]03-07-2023 Procedure [facility]02-28-2023 [facility] Medical Records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 May 03, 2022 9:36am Chief Complaint and Reason for Visit Chief Complaint HEMORRHOIDS 2WK F/U HEMORRHOIDS Reason for Visit Fissure in ano Blood in stool Fissure in ano Chief Complaint HEMORRHOIDS 2WK F/U HEMORRHOIDS c/o rectal pain Reason for Visit Fissure in ano Blood in stool Fissure in ano Rectal pain Chief Complaint ABSCESS CAUSING PAIN Reason for Visit Infected sebaceous c yst Chief Complaint SEBACEOUS CYST CAME BACK Thrombosed Hemorrhoid UNSPECIFIED ABDOMINAL PAIN Reason for Visit Fissure in ano Thrombosed external hemorrhoid Rectal pain Thrombosed external hemorrhoid Additional Source Comments (unrecognized sect ion and content) No Status Records FoundNo Status Records FoundNo Status Records Found INFORMATION SOURCE (unrecogn ized section and content) DATE CREATED AUTHOR 04/13/2019 [facility] DATE CREATED AUTHOR AUTHOR'S ORGANIZ ATION 02/10/2022 [facility] DATE CREATED AUTHOR AUTHOR'S ORGANIZ ATION 02/19/2023 [facility] Goals (unrecognized section and content) Goals may be documented in a n alternate sectionGoals may be documented in an alternate sectionGoals may be documented in an alternate section Care Teams (unrecognized sec tion and content) Team Status: Active Member Role Status Dates Dr. Todd Guzman MD Family Provider Active Dr. Todd Guzman MD Primary Care Provider Activ e Team Status: Inactive Member Role Status Dates Dr. Todd Guzman MD Primary Care Provider, Refe rring Provider Active Dr. Raymundo Mg MD Attending Provider Active Team Status: Inactive Member Role Status Dates Dr. Todd Guzman MD Primary Care Provider Activ e Dr. Raymundo Mg MD Attending Provider, Referr ing Provider Active Team Status: Active Member Role Status Dates Dr. Todd Guzman MD Primary Care Provider, Refe rring Provider Active Dr. Raymundo Mg MD Attending Provider, Other Provider Active Team Status: Inactive Member Role Status Dates Dr. Todd Guzman MD Primary Care Provider, Attending Provider, Referring Provider Active Team Status: Active Member Role Status Dates Dr. Todd Guzman MD Primary Care Provider Activ e Dr. Raymundo Mg MD Attending Provider, Other Provider Active Team Status: Inactive Member Role Status Dates Dr. Todd Guzman MD Primary Care Provider Activ e Dr. Raymundo Mg MD Attending Provider Active Team Status: Inactive Member Role Status Dates Dr. Todd Guzman MD Primary Care Provider, Refe rring Provider Active Dina MELGOZA PA-C Attending Provider Active Team Status: Inactive Member Role Status Dates Dr. Todd Guzman MD Primary Care Provider, Atte nding Provider Active Team Status: Inactive Member Role Status Dates Dr. Todd Guzman MD Primary Care Provider, Refe rring Provider Active Dr. Trish Hay MD Attending Provider Active FOR RECORDS PERTAINING TO PATIENTS WHO ARE OR HAVE BEEN ENROLLED IN A CHEMICAL DEPENDENCY/SUBSTANCEABUSE PROGRAM, SOME INFORMATION MAY BE OMITTED. This clinical summary was aggregated from multiple sources. Caution should be exercised in using it in the provision of clinical care. This summary normalizes information from multiple sources, and as a consequence, information in this document may materially change the coding, format and clinical context of patient data. In addition, data may be omitted in some cases. CLINICAL DECISIONS SHOULD BE BASED ON THE PRIMARY CLINICAL RECORDS. [facility]. provides no warranty or guarantee of the accuracy or completeness of information in this document.
[2024-08-21] VITALS: BP 101/75; PULSE 80; RESP 16; TEMP 37.7; O2SAT 97
[2024-08-21] MEDS: Doxycycline 100 MG in 0.9% Normal Saline (250mL Bag) 250 ML 250 MG IV (00:01)
[2024-08-21 00:08] LABS: Erythrocyte Sedimentation Rate 4 mm/hr (0-20)
[2024-08-21 00:10] LABS: Absolute Lymphocyte Count 1.14 X10^3/uL (0.83-4.51); Absolute Neutrophil Count 4.1 X10^3/uL (2.0-7.7); Basophil# 0.03 X10^3/uL; Basophil% 0.5 % (0-1); Eosinophil# 0.01 X10^3/uL; Eosinophils% 0.2 % (0-5); Hematocrit 39.7 % (40-54); Hemoglobin 14.7 g/dL (13.0-16.5); Lymphocyte # 1.14 X10^3/ul (0.83-4.51); Lymphocyte % 18.8 % (19-41); Mean Corpuscular Volume 86.3 fL (80-94); Mean Platelet Vol. 8.6 fl (6.2-12.0); Monocyte# 0.65 X10^3/uL; Monocyte% 10.7 % (0-10); NRBC Flagged by Analyzer 0 % (0-5); Neutrophil % 67.8 % (47-70); Platelet Count 171 K/mm3 (150-450); RBC Distribution Width SD 37.9 fl (35.1-43.9); White Blood Count 6.1 K/mm3 (4.4-11.0)
[2024-08-21 00:21] LABS: AST(SGOT) 70 U/L (<=37); Alanine Aminotransfer ALT/SGPT 123 U/L (<=46); Albumin, Serum 4.5 g/dL (3.5-5.0); Alkaline Phosphatase 60 U/L (40-129); Anion Gap 12 (5-15); BUN 23 mg/dL (4-19); BUN/Creat Ratio 20.2 RATIO (10-20); Bilirubin, Direct 0.36 mg/dL (0.00-0.30); Calcium,Total 9.5 mg/dL (7.6-11.0); Carbon Dioxide 25.1 mmol/L (21.0-32.0); Chloride 102 mmol/L (98-108); Creatinine, Serum 1.14 mg/dL (0.70-1.20); EST Glomerular Filtration Rate 84 (>60); Estimated Creatinine Clearance 87.86 ml/min (50-250); Globulin 2.5 g/dL (2.2-4.2); Glucose 102 mg/dL (70-99); Potassium 4.1 mmol/L (3.3-5.1); Sodium Level 139 mmol/L (133-145)
[2024-08-21 00:48] LABS: Troponin T High Sensitivity 8 ng/L (<=22)
[2024-08-21 00:53] VITALS: BP 108/58; PULSE 62; RESP 16; O2SAT 98
--- NOTE | 2024-08-21 01:40 | EX.ED.DYSGE1 ---
HPI History of Present Illness Chief Complaint: Wound Check Informant: patient Narrative Narrative: Patient is a 39 male with past medical history of anxiety. He states that a few days ago he felt like there was a bug bite to his right upper back. He states since then he has had generalized fatigue subjective fevers and chills sore throat and joint pain. He states he noticed a rash to his right upper back as well that looked more bull's-eye. 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 Diarrhea Abdominal pain Anxiety Home Medications ?Medication ?Instructions ?Recorded ?Last Taken ?Type NK 08/20/24 Unknown History doxycycline monohydrate 100 mg 100 mg PO BID 14 days #28 caps 08/21/24 Unknown Rx capsule Allergy/AdvReac Type Severity Reaction Status Date / Time dexamethasone (From TobraDex) Allergy LOVE Verified 08/21/24 14:51 ALTA tobramycin Allergy LOVE Verified 08/21/24 14:51 ALTA Family History Uncle Colon cancer Grandfather Cancer Skin cancer Surgical History Hx of eye surgery History of toe surgery Hx of skin graft S/P vasectomy Hx of wisdom tooth extraction Social History Smoking Status: Former smoker second hand exposure: No alcohol intake: current alcohol intake frequency: holidays/special occasions only substance use type: does not use caffeine: Yes frequency: does not exercise ROS ROS ED Constitutional Constitutional ED: Reports chills, fever(s) and subjective ENT ENT ED: Reports sore throat Cardiovascular Cardiovascular: Denies chest pain Respiratory/Chest Respiratory/Chest: Reports dyspnea; Denies cough Gastrointestinal Gastrointestinal: Reports nausea; Denies abdominal pain, diarrhea or vomiting Genitourinary Genitourinary ED: Denies dysuria Musculoskeletal Musculoskeletal: Reports arthralgias and myalgias Integumentary Reports rash Neurologic Neurologic: Denies headache(s) Hematologic/Lymphatic Hematologic/Lymphatic: Denies easy bleeding or easy bruising Allergic/Immunologic Allergic/Immunologic ED: Denies mouth swelling, tongue swelling or urticaria EXAM Physical Exam Const Vital Signs: 08/20/24 22:54 08/20/24 23:05 08/21/24 00:00 Temperature 99.8 F H 99.8 F H 99.8 F H Temperature Source Oral Oral Oral Pulse Rate 123 H 91 80 Respiratory Rate 18 18 16 Blood Pressure 121/91 H 121/93 H 101/75 Blood Pressure Mean 101 102 83 Pulse Ox 99 100 97 Oxygen Delivery Method Room Air Room Air Room Air 08/21/24 00:53 Temperature Temperature Source Pulse Rate 62 Respiratory Rate 16 Blood Pressure 108/58 L Blood Pressure Mean 74 Pulse Ox 98 Oxygen Delivery Method Room Air Positive well nourished and well developed General Appearance ED: well developed HEENT Reports moist mucous membranes HEENT Narrative: No tongue or lip swelling no oral lesions no airway edema or compromise There is diffuse erythema in the posterior pharynx with mild tonsillar hypertrophy but no trismus change in voice or difficulty with secretions Eyes PERRL and EOMs intact bilaterally General Eye ED: Negative for scleral icterus Neck supple Neck Narrative: No nuchal rigidity or meningeal signs Anterior cervical adenopathy is noted Chest Wall palpation of chest normal Resp normal respiratory effort and clear to auscultation bilaterally Resp Narrative: No nasal flaring retractions tachypnea or accessory muscle use Cardio regular rhythm Rate: tachycardic and other Other Details: Tachycardic rate with regular rhythm No murmurs rubs or gallop Radial and carotid pulses are equal and symmetric GI normal to inspection, nondistended, normoactive bowel sounds, non-tender, non-distended and no masses GI Narrative: No voluntary guarding or rigidity or pulsatile mass Auscultation: normoactive bowel sounds Palpation: soft Back/Spine no CVA tenderness Extremity normal to inspection Extremity Narrative: No asymmetric edema no pitting edema negative Homans' sign bilaterally No bony deformity or joint effusion noted Neuro oriented x3, CN's II-XII intact bilaterally and no sensory deficits noted Sensorium / Orientation: alert Motor Exam: strength 5/5 throughout Psych mental status grossly normal Skin Skin Narrative: There is a lesion to the right upper back near the scapula consistent with erythema migrans and concerning for Lyme disease No other rash noted No retained tick noted either MDM MDM MDM Narrative Medical decision making narrative: Patient presented to the ER with low-grade fever and tachycardia. His constellation of symptoms with rash on the right shoulder is concerning for Lyme disease. However patient could simply just have a viral infection or even strep throat causing his symptoms. Secondary to his basic labs were obtained with chest x-ray and strep swab. Labs revealed elevation to the CRP consistent with inflammatory process as well as mild elevation liver enzymes which can occur with Lyme infection. Therefore at this time the patient be placed on doxycycline but his vitals are stable and he does not have signs of sepsis or acute kidney injury or secondary infection such as pneumonia or strep. Therefore this can be treated as an outpatient as he also does not have findings of myocarditis. Patient was instructed of the plan of care he is agreeable to it and is therefore otherwise safe for discharge History & Record Review Discussion w/independent historian: Patient Lab Data Attestation: I reviewed the patient's lab results. Labs: Laboratory Results - last 24 hr 08/20/24 23:14 Lyme Total Antibody Negative Radiography Diagnostic Testing: Clinical Impression(s) from Imaging Studies Chest X-Ray 08/20/24 01:15 IMPRESSION: NEGATIVE CHEST Reading Location: [place] [address] Chest x-ray as interpreted by the emergency medicine physician reveals no acute infiltrate pneumothorax or pleural effusion Discharge Plan Triage Chief Complaint: Wound Check ED Provider: Chuck Lemos Dx/Rx/DC Orders Clinical Impression: Acute Lyme disease, History of anxiety Instructions: ED Lyme Disease Prescriptions: New doxycycline monohydrate 100 mg capsule 100 mg PO BID 14 Days Qty: 28 0RF No Action NK Primary Care Provider: Yordan Guzman Referrals: Yordan Guzman MD [Primary Care Provider] - Activity Restrictions/Additional Instructions: Your history and exam is consistent with early Lyme disease. Take the doxycycline/antibiotic as directed and over the next 2 to 3 days your symptoms should improve. Completely finished the doxycycline course of 14 days to ensure eradication of the disease. If you have further concerns or worsening of symptoms please return to the ER for repeat evaluation. Your confirmatory Lyme test was sent out at your ER visit today and should result in the next 3 to 7 days. Print Language: Danish Disposition Disposition: Home, Self Care Discharge Date/Time: 08/21/24 01:54
[2024-08-21 01:51] VITALS: BP 102/68; PULSE 61; RESP 18; TEMP 36.8; O2SAT 100
[2024-08-22 14:08] LABS: Lyme Scn Total Ab w/Rflx Negative (Negative)
== END 2024-08-21 01:54 | disposition home or self-care (01) ==
PROVIDERS: Emergency Provider Emergency Medicine; PCP Family Medicine; Visit Provider Emergency Medicine
DX: A69.20 Lyme disease, unspecified (principal); J02.9 Acute pharyngitis, unspecified; F41.9 Anxiety disorder, unspecified; Z87.891 Personal history of nicotine dependence; R06.00 Dyspnea, unspecified
CPT/HCPCS: 71046; 80048; 80076; 84484; 85025; 85652; 86140; 86618; 87651; 96365; 96374; 99283; A4216